=== PATIENT | female | born 1970 | race Caucasian/White ===

== ENCOUNTER 2024-11-15 14:36 | Emergency (ER) | payer OTHER, SELFPAY ==
--- NOTE | ~2024-11-15 | CT_ITS ---
EXAMINATION: CT brain wo sedrick, 11/15/2024 16:55 CDT HISTORY: dizziness COMPARISON: No comparisons available. Technique: Axial images obtained of the brain without contrast. One or more of the following dose reduction techniques were used: automated exposure control, adjustment of the mA and/or kV according to patient size, use of iterative reconstruction technique. Findings: No acute infarct or parenchymal hemorrhage. No abnormal mass or mass effect. No midline shift. No extra-axial fluid collections. No hydrocephalus. Mastoid air cells unremarkable. Sinuses and orbits unremarkable. No acute fracture. No significant facial or scalp soft tissue swelling evident. No radiopaque foreign body is seen. Impression: 1.No acute intracranial abnormality. Reviewed, dictated and finalized at location P. Impression: 1.No acute intracranial abnormality.
--- NOTE | ~2024-11-15 | XR_ITS ---
EXAMINATION: XR chest 2V 11/15/2024 17:10 INDICATION: Dizziness PROCEDURE: 2 view chest COMPARISON: No prior studies for comparison. FINDINGS: The lungs are clear. The cardiomediastinal silhouette is within normal limits. There are no pleural effusions. There is no pneumothorax suspected. IMPRESSION: 1: NO ACUTE CARDIOPULMONARY DISEASE. Reviewed, dictated and finalized at location O.
--- NOTE | ~2024-11-15 | CT_ITS ---
EXAMINATION: CTA brain carotid DATE: 11/15/2024 19:41 CDT INDICATION: Recent falls. Weakness. TECHNIQUE: Computed tomographic angiography (CTA) of the head was performed without and with 100 mL Omnipaque-350 intravenous contrast. CTA of the neck was performed with intravenous contrast. The dose-length product was 1226.99 mGy-cm. Maximum intensity projection and volume rendered 3D-reconstructions were created by the technologist on a separate workstation. COMPARISON: CT dated 11/15/2024. FINDINGS: HEAD CTA: There is mild stenosis of the cavernous segment of the left internal carotid artery. There is no evidence for occlusion or aneurysm. There are codominant vertebral arteries. Small air-fluid levels present in the sphenoid sinus consistent with sinusitis. NECK CTA: The origins of the carotid and vertebral arteries are widely patent. There is no evidence for significant stenosis, occlusion or dissection within the carotid arteries. There is 0% stenosis of the proximal right internal carotid artery relative to normal distal artery lumen diameter (NASCET criteria). There is 0% stenosis of the proximal left internal carotid artery relative to normal distal artery lumen diameter. IMPRESSION: 1: No significant vascular abnormality of the head or neck. 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 3: Mild sinus disease. Reviewed, dictated and finalized at location O.
[2024-11-15 14:53] VITALS: BP 125/73; PULSE 88; RESP 16; TEMP 36.2; O2SAT 98
--- NOTE | 2024-11-15 14:53 | ECG_ITS ---
Test Date: 2024-11-15 14:58:35 Measurements Intervals [place] Rate: 86 P: 35 NV: 157 QRS: 23 QRSD: 90 T: 15 QT: 349 QTc: 418 Interpretive Statements SINUS RHYTHM LOW QRS VOLTAGE IN PRECORDIAL LEADS [QRS DEFLECTION < 1.0 mV IN CHEST LEADS] POSSIBLE RIGHT VENTRICULAR CONDUCTION DELAY [RSR (QR) IN V1/V2] POSSIBLE ANTERIOR MYOCARDIAL INFARCTION , PROBABLY OLD [30 ms Q WAVE IN V3/V4, OR R < 0.2 mV IN V4] No previous ECG available for comparison Electronically Signed On 11-15-2024 20:00:23 CDT by Nena Martinez M.D.
--- NOTE | 2024-11-15 16:45 | ED_ITS ---
HPI - Weakness General Chief complaint: Weakness <Isabelle Alvarado PA-C - Last Filed: 11/18/24 10:06> Stated complaint: Weakness b/l legs <Isabelle Alvarado PA-C - Last Filed: 11/18/24 10:06> Time Seen by Provider: 11/15/24 16:45 <Isabelle Alvarado PA-C - Last Filed: 11/18/24 10:06> Focused HPI: This is a 54 year old female that presents to the ER for weakness. Reports multiple falls. Reports dizziness. Reports this has been an ongoing issue for months. GENERAL: Well-appearing, well-nourished, and in no acute distress. HEAD: Normocephalic, atraumatic. CHEST: Clear to auscultation. ?No respiratory distress. HEART: Regular rate and rhythm.? NEURO: ?Alert and oriented x3. Patient screened in triage and initial orders placed.? ?Additional care and disposition to be based upon?diagnostic testing and treatment. <Isabelle Alvarado PA-C - Last Filed: 11/18/24 10:06> Focused HPI: This is a 54 year old female that presents to the ER for weakness. Reports multiple falls. Reports dizziness. Reports this has been an ongoing issue for months. GENERAL: Well-appearing, well-nourished, and in no acute distress. HEAD: Normocephalic, atraumatic. CHEST: Clear to auscultation. ?No respiratory distress. HEART: Regular rate and rhythm.? NEURO: ?Alert and oriented x3. Patient screened in triage and initial orders placed.? ?Additional care and disposition to be based upon?diagnostic testing and treatment. <Nathaly Ansari PA-C - Last Filed: 11/15/24 21:08> Source: patient <JESSICA Soto Last Filed: 11/15/24 21:08> Mode of arrival: ambulatory <Nathaly Ansari PA-C - Last Filed: 11/15/24 21:08> Limitations: no limitations <JESSICA Soto Last Filed: 11/15/24 21:08> History of Present Illness HPI Narrative: Agree with above HPI. States this has been ongoing for the last 1 year, but has been worse over this summer. Reports she was at [place] today, get began feeling hot and somewhat lightheaded and weak in her lower extremities. She then fell to the ground. She did not injure herself when she fell. Did not hit her head or lose consciousness. Remembers the entire thing. States this is how the episodes occur every single time over the last 1 year. Denies any change in the episode today. States she feels back to her normal currently. Notes she did not drink much water today. Denies chest pain, palpitations, shortness of breath, focal weakness or numbness, vision changes. <Nathaly Ansari PA-C - Last Filed: 11/15/24 21:08> Related Data Allergies/Adverse reactions: Allergies Allergy/AdvReac Type Severity Reaction Status Date / Time codeine Allergy Unknown Weakness Verified 11/15/24 14:59 <Isabelle Alvarado PA-C - Last Filed: 11/18/24 10:06> Review of Systems 2 Review of Systems: All systems reviewed & are unremarkable except as noted in HPI. <Nathaly Ansari PA-C - Last Filed: 11/15/24 21:08> All systems reviewed & are unremarkable except as noted in HPI and below < Nathaly Ansari PA-C - Last Filed: 11/15/24 21:08> Exam 2 Narrative: GENERAL: Well appearing, morbidly obese with BMI 46.0, non-toxic, in no acute distress. HEAD: Normocephalic, atraumatic. EYES: PERRL/EOMI, conjunctivae clear bilaterally. No nystagmus. NECK: Supple. No meningeal signs. RESPIRATORY: Airway patent, respirations nonlabored. Clear to auscultation bilaterally, no rales, rhonchi, wheezing. CARDIOVASCULAR: Regular rate and rhythm without murmurs, rubs, or gallops. Peripheral pulses 2+ and equal bilaterally. MUSCULOSKELETAL: Moves all extremities. No gross deformities. SKIN: Warm, dry, normal color. No rashes. NEURO: A&O X3. Speech clear. Follows commands. CN II-XII intact. Sensation grossly intact, symmetric bilaterally. Steady gait. No ataxic movements. Strength 5/5 in upper and lower extremities bilaterally. No pronator drift. Equal vp home health strength bilaterally. PSYCHIATRIC: Appropriate mood and affect. Normal interaction. <JESSICA Soto Last Filed: 11/15/24 21:08> Course Vital Signs Vital signs: Vital Signs Temperature 97.2 F L 11/15/24 14:53 Pulse Rate 88 11/15/24 14:53 Respiratory Rate 16 11/15/24 14:53 Blood Pressure 125/73 11/15/24 14:53 Pulse Oximetry 98 11/15/24 14:53 Temperature 97.6 F 11/15/24 18:11 Pulse Rate 87 11/15/24 21:13 Respiratory Rate 17 11/15/24 21:13 Blood Pressure 128/80 11/15/24 21:13 Pulse Oximetry 97 11/15/24 21:13 Oxygen Delivery Room Air 11/15/24 18:11 <JESSICA Brito Last Filed: 11/18/24 10:06> Vital Signs Temperature 97.2 F L 11/15/24 14:53 Pulse Rate 88 11/15/24 14:53 Respiratory Rate 16 11/15/24 14:53 Blood Pressure 125/73 11/15/24 14:53 Pulse Oximetry 98 11/15/24 14:53 Temperature 97.6 F 11/15/24 18:11 Pulse Rate 87 11/15/24 21:13 Respiratory Rate 17 11/15/24 21:13 Blood Pressure 128/80 11/15/24 21:13 Pulse Oximetry 97 11/15/24 21:13 Oxygen Delivery Room Air 11/15/24 18:11 <JESSICA Soto Last Filed: 11/15/24 21:08> MDM - Weakness MDM Narrative Medical decision making narrative: Patient presented to ED with weakness, fall today. History of similar episodes over the past 1 year. Vital signs are stable upon arrival. Patient is neurologically intact. No focal deficits appreciated on my exam. She denies syncope, LOC, states the episode occurred today just like all of the other episodes over the past 1 year, however her family recommended to come to the ED today. She denies any injury from the fall. Denies head injury. CT brain negative. 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 Patient reports she has previously been evaluated by Neurology and they did not find any concerning findings. She was most recently referred to a psychiatrist for these episodes. States in the past, she did not have any episodes while on anxiety medication. She does admit to feeling anxious with the episodes. Laboratory studies are also otherwise unremarkable. No significant abnormalities. Normal electrolytes. CK within normal range. EKG with sinus rhythm, no significant concerning ST changes. Troponin undetectable. Chest x- ray is clear. UA without signs of infection. Patient remains at her baseline. Remains neurologically intact. Has not had any issues throughout ED stay. Discussed lab and imaging findings with patient, overall reassuring workup. No specific etiology to explain patient's sx's at this time. Feel patient is safe for discharge home with close outpatient follow-up. She has an appointment with her primary care doctor on Monday. Advised to discuss anxiety/axniety medications. She feels comfortable going home. Discussed very strict return precautions, including signs and sx's of cva. Patient is in agreement with plan. D/C in stable condition. <Nathaly Ansari PA-C - Last Filed: 11/15/24 21:08> Medical Records Attestation: I reviewed the patient's medical records. <Nathaly Ansari PA-C - Last Filed: 11/15/24 21:08> Lab Data Attestation: I reviewed the patient's lab results. <Nathaly Ansari PA-C - Last Filed: 11/15/24 21:08> Result diagrams: 11/15/24 18:34 11/15/24 18:34 <Isabelle Alvarado PA-C - Last Filed: 11/18/24 10:06> Labs: Lab Results 11/15/24 11/15/24 Range/Units 18:34 18:50 WBC 10.1 H (4.5-10.0) K/mm3 RBC 4.73 (4.2-5.4) M/mm3 Hgb 13.1 (12.0-15.0) g/dL Hct 41.2 (37.0-47.0) % MCV 87.1 (80-100) fl MCH 27.7 (26-34) pg MCHC 31.8 L (32-36) g/dl RDW 14.3 (11.5-14.5) % Plt Count 295 (150-375) k/mm3 MPV 10.1 (7.4-10.4) fl Immature Gran % (Auto) 0.3 (0-0.5) % Neut % (Auto) 75.6 H (45.5-73.1) % Lymph % (Auto) 15.6 L (18.3-44.2) % [place] % (Auto) 6.6 (2.6-8.5) % Eos % (Auto) 1.5 (0-4.4) % Baso % (Auto) 0.4 (0.2-1.2) % Lymph # (Auto) 1.57 (0.9-3.2) K/mm3 [place] # (Auto) 0.7 H (0.1-0.6) K/mm3 Eos # (Auto) 0.2 (0-0.3) K/mm3 Baso # (Auto) 0.0 (0.0-0.1) K/mm3 Abs Immat Gran (auto) 0.03 (0.00-0.031) K/mm3 Absolute Neuts (auto) 7.6 H (1.3-6.7) K/mm3 Absolute Nucleated RBC 0.000 (0.0-0.012) K/mm3 Nucleated RBC % 0.0 (0.0-0.2) % Sodium 139 (137-145) mmol/L Potassium 4.3 (3.4-5.0) mmol/L Chloride 105 (98-107) mmol/L Carbon Dioxide 25 (22-30) mmol/L Anion Gap 9 (4-12) mmol/L BUN 20 H (7-17) mg/dL Creatinine 0.93 (0.7-1.0) mg/dL Estim Creat Clear Calc 73 ml/min Estimated GFR > 60 (59 - ) Glucose 107 (65-110) mg/dL Calcium 8.9 (8.4-10.2) mg/dL Magnesium 2.2 (1.6-2.3) mg/dL Total Bilirubin 0.4 (0.2-1.3) mg/dL AST 21 (14-36) U/L ALT 19 (6-35) U/L Alkaline Phosphatase 135 H (38-126) U/L Total Creatine Kinase 42 (30-135) U/L Troponin I < 0.012 (0.000-0.034) ng/mL Total Protein 7.4 (6.3-8.2) g/dL Albumin 4.1 (3.5-5.1) g/dL Urine Color Yellow (Yellow) Urine Appearance Cloudy H (Clear) Urine pH 7.0 (5.0-9.0) Ur Specific [place] 1.024 (1.001-1.035) Urine Protein Negative (Negative) mg/dL Urine Glucose (UA) Negative (Negative) mg/dL Urine Ketones Negative (Negative) mg/dL Ur Blood (Man) Negative (Negative) Urine Nitrate Negative (Negative) Urine Bilirubin Negative (Negative) Urine Urobilinogen 1.0 (<2.0) mg/dL Leukocyte Esterase Rfl Trace H (Negative) NAOMIE/UL Urine RBC 3-5 H (0-2) /hpf Urine WBC 0-5 (0-3) /hpf Ur Squamous Epith Cells Moderate (Few) /hpf Urine Bacteria 2+ H /hpf Urine Casts 0-2 <Isabelle Alvarado PA-C - Last Filed: 11/18/24 10:06> Lab Results 11/15/24 11/15/24 Range/Units 18:34 18:50 WBC 10.1 H (4.5-10.0) K/mm3 RBC 4.73 (4.2-5.4) M/mm3 Hgb 13.1 (12.0-15.0) g/dL Hct 41.2 (37.0-47.0) % MCV 87.1 (80-100) fl MCH 27.7 (26-34) pg MCHC 31.8 L (32-36) g/dl RDW 14.3 (11.5-14.5) % Plt Count 295 (150-375) k/mm3 MPV 10.1 (7.4-10.4) fl Immature Gran % (Auto) 0.3 (0-0.5) % Neut % (Auto) 75.6 H (45.5-73.1) % Lymph % (Auto) 15.6 L (18.3-44.2) % [place] % (Auto) 6.6 (2.6-8.5) % Eos % (Auto) 1.5 (0-4.4) % Baso % (Auto) 0.4 (0.2-1.2) % Lymph # (Auto) 1.57 (0.9-3.2) K/mm3 [place] # (Auto) 0.7 H (0.1-0.6) K/mm3 Eos # (Auto) 0.2 (0-0.3) K/mm3 Baso # (Auto) 0.0 (0.0-0.1) K/mm3 Abs Immat Gran (auto) 0.03 (0.00-0.031) K/mm3 Absolute Neuts (auto) 7.6 H (1.3-6.7) K/mm3 Absolute Nucleated RBC 0.000 (0.0-0.012) K/mm3 Nucleated RBC % 0.0 (0.0-0.2) % Sodium 139 (137-145) mmol/L Potassium 4.3 (3.4-5.0) mmol/L Chloride 105 (98-107) mmol/L Carbon Dioxide 25 (22-30) mmol/L Anion Gap 9 (4-12) mmol/L BUN 20 H (7-17) mg/dL Creatinine 0.93 (0.7-1.0) mg/dL Estim Creat Clear Calc 73 ml/min Estimated GFR > 60 (59 - ) Glucose 107 (65-110) mg/dL Calcium 8.9 (8.4-10.2) mg/dL Magnesium 2.2 (1.6-2.3) mg/dL Total Bilirubin 0.4 (0.2-1.3) mg/dL AST 21 (14-36) U/L ALT 19 (6-35) U/L Alkaline Phosphatase 135 H (38-126) U/L Total Creatine Kinase 42 (30-135) U/L Troponin I < 0.012 (0.000-0.034) ng/mL Total Protein 7.4 (6.3-8.2) g/dL Albumin 4.1 (3.5-5.1) g/dL Urine Color Yellow (Yellow) Urine Appearance Cloudy H (Clear) Urine pH 7.0 (5.0-9.0) Ur Specific [place] 1.024 (1.001-1.035) Urine Protein Negative (Negative) mg/dL Urine Glucose (UA) Negative (Negative) mg/dL Urine Ketones Negative (Negative) mg/dL Ur Blood (Man) Negative (Negative) Urine Nitrate Negative (Negative) Urine Bilirubin Negative (Negative) Urine Urobilinogen 1.0 (<2.0) mg/dL Leukocyte Esterase Rfl Trace H (Negative) NAOMIE/UL Urine RBC 3-5 H (0-2) /hpf Urine WBC 0-5 (0-3) /hpf Ur Squamous Epith Cells Moderate (Few) /hpf Urine Bacteria 2+ H /hpf Urine Casts 0-2 <Nathaly Ansari PA-C - Last Filed: 11/15/24 21:08> Imaging Data Attestation: I personally reviewed and interpreted this imaging study as follows: < Nathaly Ansari PA-C - Last Filed: 11/15/24 21:08> Radiologist's impression: ITS Impressions Head CT 11/15/24 17:06 Impression: 1.No acute intracranial abnormality. Chest X-Ray 11/15/24 17:12 IMPRESSION: 1: NO ACUTE CARDIOPULMONARY DISEASE. Head/Neck CTA 11/15/24 19:40 IMPRESSION: 1: No significant vascular abnormality of the head or neck. 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 3: Mild sinus disease. <Nathaly Ansari PA-C - Last Filed: 11/15/24 21:08> ECG Data EKG #1: Attestation: I personally reviewed and interpreted this ECG as follows: <Nathaly Ansari PA-C - Last Filed: 11/15/24 21:08> ECG completion date: 11/15/24 <JESSICA Soto Last Filed: 11/15/24 21:08> ECG completion time: 14:58 <JESSICA Soto Last Filed: 11/15/24 21:08> EKG Interpretation: normal rate (86), sinus rhythm and non-specific ST changes <JESSICA Soto Last Filed: 11/15/24 21:08> Critical Care Time Critical Care Time Critical Care Time: No <JESSICA Brito Last Filed: 11/18/24 10:06> Discharge Plan Discharge Clinical Impression: Generalized weakness, Multiple falls <JESSICA Brito Last Filed: 11/18/24 10:06> Patient Disposition: Home <JESSICA Brito Last Filed: 11/18/24 10:06> Condition: Stable <JESSICA Brito Last Filed: 11/18/24 10:06> Instructions: Antibiotic Form, Weakness (ED), Fall Prevention (ED) <JESSICA Brito Last Filed: 11/18/24 10:06> Additional Instructions: Your workup here was reassuring. Stay well hydrated at home. Follow-up with your primary care doctor for further evaluation. Return to the ED if you experience worsening or severe symptoms, severe weakness, weakness or numbness of arm or leg, chest pain, difficulty breathing, passing out, severe dizziness, difficulty speaking or slurred speech, or any other symptoms of concern. <JESSICA Brito Last Filed: 11/18/24 10:06> Patient Language: Estonian <JESSICA Brito Last Filed: 11/18/24 10:06> Follow-up/Referrals: PHYSICIAN,SAW FILER [Primary Care Provider, Internal Medicine] <JESSICA Brito Last Filed: 11/18/24 10:06> Time of Disposition: 21:02 <JESSICA Brito Last Filed: 11/18/24 10:06> 21:02 <JESSICA Soto Last Filed: 11/15/24 21:08>
[2024-11-15 18:11] VITALS: BP 122/70; PULSE 70; PULSE 88; RESP 15; TEMP 36.4; O2SAT 99
--- OUTSIDE RECORDS SUMMARY | 2024-11-15 18:29 | XMS_ITS | Encounter Summary ---
Author Organization [facility] Address [facility] [place] [address] Care Team Providers Care Specimen Preparation Assistant Name Role Phone Devaughn Manuel MD Primary Care Provider [phone] Selam, Melissa Primary Care Provider [phone] Selam, Melissa DO Primary Care Provider [phone] None, Provider Primary Care Provider Carroll Yang MD Primary Care Provider [phone] Encounter Details Date Type Department Care Team (Late st Contact Info) Description 05/24/2021 Hosp Visit [facility] Occupational Therapy [address] [place], [place] [address] Miguel A Nick, OTR [place], [place] [id number] Social History Tobacco Use Types Packs/Day Years Used Date Smoking Tobacco: Former Cigarettes Smokeless Tobacco: Never Comments:>4 years Physician will discuss if necessary Alcohol Use Standard Drinks/Week Comments Never 0 (1 standard drink = 0.6 oz pur e alcohol) AUDIT-C Answer Date Recorded Frequency of Alcohol Consumption Never 03/05/2019 Average Number of Drinks Not on file 020 Frequency of Binge Drinking Not on file 02/20 PHQ-2 Answer Date Recorded PHQ-2 Score - If the patient scores above 3, please move on to questions 3-9 0 12/11/2020 Comments No Sex and Gender Information Value Date Recorded Sex Assigned at Female 03/21/2024 5:01 PM LITIGATION CLAIM REPRESENTATIVE Legal Sex Female 10:42 PM CDT Gender Identity Female 05/10/2021 12:51 PM CDT Sexual Orientation Straight 11/10/2021 5: 43 AM CDT COVID-19 Exposure Response Date Recorded In the last 10 days, have yo u been in contact with someone who was confirmed or suspected to have Coronavirus/COVID-19? No / Unsure 05/13/2021 1:31 PM CDT documented as of this encounter Functional Status * RETIRED Are you deaf or do you have serious difficulty hearing Answer Date of Assessment Author Status No 01/01/2020 2:43 PM LITIGATION CLAIM REPRESENTATIVE Activ e * RETIRED Are you blind or do you have serious difficulty seeing, even when wearing glasses? Answer Date of Assessment Author Status No 01/01/2020 2:43 PM LITIGATION CLAIM REPRESENTATIVE Activ e * Do you have serious difficulty walking or climbing stairs? Answer Date of Assessment Author Status No 01/01/2020 2:43 PM Emma Silvestre RN Active * Do you have difficulty dressing or bathing? Answer Date of Assessment Author Status No 01/01/2020 2:43 PM Emma Silvestre RN Active * Because of a physical, mental, or emotional condition, do you have difficulty doing errands alone such as visiting a doctor's office or shopping? Answer Date of Assessment Author Status No 01/01/2020 2:43 PM Emma Silvestre RN Active documented as of this encounter Mental Status * Because of a physical, mental, or emotional condition, do you have serious difficulty concentrating, remembering, or making decisions? Answer Entry Date Author Status No 01/01/2020 2:43 PM Emma Silvestre RN Active documented in this encounter Plan of Treatment Not on file documented as of this encounter Visit Diagnoses Diagnosis Hand pain, right- Primary Pain in limb documented in this encounter Additional Health Concerns Infection Onset Date Last Indicated Resolved Time COVID-19 Rule Out 11/15/2021 11/15/2021 11/16/2021 11:55 PM CDT Assessment Noted Time PHQ-9 Depression Total Score: 4 12/12/19 21 8:53 AM CDT documented as of this encounter Care Teams Specimen Preparation Assistant Relationship Specialty Start Date End Date Devaughn Manuel MD [address] [place] [id number] PCP - General INTERNAL MEDICINE 01/16/21 11/09/21 Melissa Doss DO [address] [place] [address] PCP - General FAMILY PRACTICE 11/10/21 07/15/22 Melissa Doss DO [address] [place] [address] PCP - General FAMILY PRACTICE 01/16/23 01/19/23 None, MD [place] PCP - General UNKNOWN PHYSICIAN SPECIALTY 02/19/23 12/13/23 Carroll La MD [address] [place] [address] PCP - General FAMILY PRACTICE 12/14/23 documented as of this encounter
--- OUTSIDE RECORDS SUMMARY | 2024-11-15 18:29 | XMS_ITS | Encounter Summary ---
Author Organization [facility] Address [address] [place] [address] Care Team Providers Care Planner Intern Name Role Phone Melissa Doss DO Primary Care Provider [phone] Melissa Doss DO Primary Care Provider [phone] None, Provider Primary Care Provider Carroll Yang MD Primary Care Provider [phone] Encounter Details Date Type Department Care Team (Late st Contact Info) Description 02/14/2022 BlackBridget Message Enc [facility] Family Medicine - [place] [address] [facility], [address] [place] [address] Melissa Doss, DO [address] [place], [place] [phone] [place] Social History Tobacco Use Types Packs/Day Years Used Date Smoking Tobacco: Former Cigarettes 1 5 1 - 12/05/2019 Smokeless Tobacco: Never Comments:>4 years Physician will [...] please move on to questions 3-9 0 01/21/2022 Comments No Sex and Gender Information Value Date Recorded Sex Assigned at Female 03/21/2024 5:01 PM PALLIATIVE CARE COORDINATOR Legal Sex Female 10:42 PM CDT Gender Identity Female 05/10/2021 12:51 PM CDT Sexual Orientation Straight 11/10/2021 5: 43 AM CDT COVID-19 Exposure Response Date Recorded In the last 10 days, have yo u been in contact with someone who was confirmed or suspected to have Coronavirus/COVID-19? No / Unsure 02/15/2022 10:06 AM PALLIATIVE CARE COORDINATOR documented as of this encounter Functional Status * RETIRED Are you deaf or do you have serious difficulty hearing Answer Date of Assessment Author Status No 01/01/2020 2:43 PM PALLIATIVE CARE COORDINATOR Activ e * RETIRED Are you blind or do you have serious difficulty seeing, even when wearing glasses? Answer Date of Assessment Author Status No 01/01/2020 2:43 PM PALLIATIVE CARE COORDINATOR Activ e * Do you have serious [...] Assessment Author Status No 01/01/2020 2:43 PM mEma Silvestre RN Active documented as of this encounter Mental Status * Because of a physical, mental, or emotional condition, do you have serious difficulty concentrating, remembering, or making decisions? Answer Entry Date Author Status No 01/01/2020 2:43 PM Emma Silvestre RN Active documented in this encounter Plan of Treatment Not on file documented as of this encounter Visit Diagnoses Not on filedocumented in this encounter Additional Health Concerns Assessment Noted Time PHQ-9 Depression Total Score: 20 022 8:43 AM CDT documented as of this encounter Care Teams Planner Intern Relationship Specialty Start Date End Date Melissa Doss DO [address] [place] [id number] PCP - General FAMILY PRACTICE 11/10/21 07/15/22 Melissa Doss DO [address] [place] [address] PCP - General FAMILY PRACTICE 01/16/23 01/19/23 None, Provider, PCP - General UNKNOWN PHYSICIAN SPECIALTY 02/19/23 12/13/23 Carroll La MD [address] [place] [phone] PCP - General FAMILY PRACTICE 12/14/23 documented as of this encounter
--- OUTSIDE RECORDS SUMMARY | 2024-11-15 18:29 | XMS_ITS | Encounter Summary ---
Author Organization [facility] Address [facility] [place] [address] Care Team Providers Care Logging Tractor Operator Name Role Phone Melissa Doss Primary Care Provider [phone] Selam Melissa Primary Care Provider [phone] None, Provider Primary Care Provider Carroll Yang MD Primary Care Provider [phone] Encounter Details Date Type Department Care Team (Late st Contact Info) Description 01/05/2022 HotPadst Message Enc [facility] Diabetes and Endocrinology - [place] [address] [place] [address] Stacey Borjas, RD 6.1 a1c Social History Tobacco Use Types Packs/Day Years [...] 3, please move on to questions 3-9 4 11/10/2021 Comments No Sex and Gender Information Value Date Recorded Sex Assigned at Female 03/21/2024 5:01 PM PROCESS STRIPPER Legal Sex Female 10:42 PM CDT Gender Identity Female 05/10/2021 12:51 PM CDT Sexual Orientation Straight 11/10/2021 5: 43 AM CDT COVID-19 Exposure Response Date Recorded In the last 10 days, have yo u been in contact with someone who was confirmed or suspected to have Coronavirus/COVID-19? No / Unsure 12/28/2021 9:08 AM PROCESS STRIPPER documented as of this encounter Functional Status * RETIRED Are you deaf or do you have serious difficulty hearing Answer Date of Assessment Author Status No 01/01/2020 2:43 PM PROCESS STRIPPER Activ e * RETIRED Are you blind or do you have serious difficulty seeing, even when wearing glasses? Answer Date of Assessment Author Status No 01/01/2020 2:43 PM PROCESS STRIPPER Activ e * Do you have serious [...] documented as of this encounter Care Teams Logging Tractor Operator Relationship Specialty Start Date End Date Melissa Doss DO [address] [place] [id number] PCP - General FAMILY PRACTICE 11/10/21 07/15/22 Melissa Doss DO [address] [place] [address] PCP - General FAMILY PRACTICE 01/16/23 01/19/23 None, Provider, PCP - General UNKNOWN PHYSICIAN SPECIALTY 02/19/23 12/13/23 Carroll La MD [address] [place] [address] [address] [place] [address] PCP - General FAMILY PRACTICE 12/14/23 documented as of this encounter
--- OUTSIDE RECORDS SUMMARY | 2024-11-15 18:29 | XMS_ITS | Encounter Summary ---
Author Organization [facility] Address [address] [place] [address] Care Team Providers Care Camera Mechanic Name Role Phone Melissa Doss DO Primary Care Provider [phone] Melissa Doss DO Primary Care Provider [phone] None, Provider Primary Care Provider Carroll Yang MD Primary Care Provider [phone] Encounter Details Date Type Department Care Team (Late st Contact Info) Description 06/01/2022 Squawkat Message Enc [facility] Family Medicine - [place] [address], [address] [place] [phone] SelamMelissa white, DO [address] [place], [place] [id number] Concern Social History Tobacco Use Types Packs/Day Years Used Date Smoking Tobacco: Former Cigarettes 1 5 1 - 12/04/2020 Smokeless Tobacco: Never Comments:>4 years Physician will discuss if necessary Alcohol Use Standard Drinks/Week Comments Never 0 (1 standard drink = 0.6 oz pur e alcohol) AUDIT-C Answer Date Recorded Frequency of Alcohol Consumption Never 03/05/2019 Average Number of Drinks Not on file 020 Frequency of Binge Drinking Not on file 02/20 PHQ-2 Answer Date Recorded Patient Health Questionnaire-2 Score 0 05/02/2022 Comments No Sex and Gender Information Value Date Recorded Sex Assigned at Female 03/21/2024 5:01 PM PUMP RUNNER Legal Sex Female 10:42 PM CDT Gender Identity Female 05/10/2021 12:51 PM CDT Sexual Orientation Straight 11/10/2021 5: 43 AM CDT COVID-19 Exposure Response Date Recorded In the last 10 days, have michael lyons been in contact with someone who was confirmed or suspected to have Coronavirus/COVID-19? No / Unsure 05/13/2022 6:02 AM CDT documented as of this encounter Functional Status * Are you deaf or do you have serious difficulty hearing Answer Date of Assessment Author Status No 05/13/2022 2:20 PM CDT Kaley Odonnell RN Active * Are you blind or do you have serious difficulty seeing, even when wearing glasses? Answer Date of Assessment Author Status No 05/13/2022 2:20 PM CDT Kaley Odonnell RN Active * Do you have serious difficulty walking or climbing stairs? Answer Date of Assessment Author Status No 05/13/2022 2:20 PM CDT Kaley Odonnell RN Active * Do you have difficulty dressing or bathing? Answer Date of Assessment Author Status No 05/13/2022 2:20 PM CDT Kaley Odonnell RN Active * Because of a physical, mental, or emotional condition, do you have difficulty doing errands alone such as visiting a doctor's office or shopping? Answer Date of Assessment Author Status No 05/13/2022 2:20 PM CDT Kaley Odonnell RN Active documented as of this encounter Mental Status * Because of a physical, mental, or emotional condition, do you have serious difficulty concentrating, remembering, or making decisions? Answer Entry Date Author Status No 05/13/2022 2:20 PM CDT Kaley Odonnell RN Active documented in this encounter Plan of Treatment Not on file documented as of this encounter Visit Diagnoses Not on filedocumented in this encounter Additional Health Concerns Assessment Noted Time PHQ-9 Depression Total Score: 022 8:43 AM CDT documented as of this encounter Care Teams Camera Mechanic Relationship Specialty Start Date End Date Melissa Doss DO [address] [place] [address] PCP - General FAMILY PRACTICE 11/10/21 07/15/22 Melissa Doss DO [address] [place] [address] PCP - General FAMILY PRACTICE 01/16/23 01/19/23 None, Provider, PCP - General UNKNOWN PHYSICIAN SPECIALTY 02/19/23 12/13/23 Carroll La MD [address] [phone] PCP - General FAMILY PRACTICE 12/14/23 documented as of this encounter
--- OUTSIDE RECORDS SUMMARY | 2024-11-15 18:29 | XMS_ITS | Encounter Summary ---
Author Organization [facility] Address [address] [place] [address] Care Team Providers Care Informatics Physician Name Role Phone Melissa Doss DO Primary Care Provider [phone] Melissa Doss DO Primary Care Provider [phone] None, Provider Primary Care Provider Carroll Yang MD Primary Care Provider Encounter Details Date Type Department Care Team (Late st Contact Info) Description 04/09/2022 naaya Message Enc [facility] Family Medicine - [place] [address], [address] [place] [address] Melissa Doss, DO [address] [place], [place] [phone] Psyc report Social History Tobacco Use Types Packs/Day Years [...] Sex Assigned at Female 03/21/2024 5:01 PM SSAS DEVELOPER Legal Sex Female 10:42 PM CDT Gender Identity Female 05/10/2021 12:51 PM CDT Sexual Orientation Straight 11/10/2021 5: 43 AM CDT COVID-19 Exposure Response Date Recorded In the last 10 days, have yo u been in contact with someone who was confirmed or suspected to have Coronavirus/COVID-19? No / Unsure 03/21/2022 3:49 PM SSAS DEVELOPER documented as of this encounter Functional Status * RETIRED Are you deaf or do you have serious difficulty hearing Answer Date of Assessment Author Status No 01/01/2020 2:43 PM SSAS DEVELOPER Activ e * RETIRED Are you blind or do you have serious difficulty seeing, even when wearing glasses? Answer Date of Assessment Author Status No 01/01/2020 2:43 PM SSAS DEVELOPER Activ e * Do you have serious [...] documented as of this encounter Care Teams Informatics Physician Relationship Specialty Start Date End Date Melissa Doss DO [address] [place] [address] PCP - General FAMILY PRACTICE 11/10/21 07/15/22 Melsisa Doss DO [address] [place] [address] PCP - General FAMILY PRACTICE 01/16/23 01/19/23 None, Provider, PCP - General UNKNOWN PHYSICIAN SPECIALTY 02/19/23 12/13/23 Carroll La MD [address] [place] [phone] PCP - General FAMILY PRACTICE 12/14/23 documented as of this encounter
--- OUTSIDE RECORDS SUMMARY | 2024-11-15 18:29 | XMS_ITS | Encounter Summary ---
Author Organization [facility] Address [address] [place] [address] Care Team Providers Care Wax Pot Tender Name Role Phone Melissa Doss DO Primary Care Provider [phone] Melissa Doss DO Primary Care Provider [phone] None, Provider Primary Care Provider Carroll Yang MD Primary Care Provider [phone] Encounter Details Date Type Department Care Team (Late st Contact Info) Description 04/21/2022 Story To Colleget Message Enc [facility] Family Medicine - [place] [address] [facility], [address] [place] [phone] Melissa Doss, DO [address] [place], [place] [phone] Psych report (Kimmy) Social History Tobacco Use Types Packs/Day Years [...] Sex Assigned at Female 03/21/2024 5:01 PM FIREARMS MODEL MAKER Legal Sex Female 10:42 PM CDT Gender Identity Female 05/10/2021 12:51 PM CDT Sexual Orientation Straight 11/10/2021 5: 43 AM CDT documented as of this encounter Functional Status * RETIRED Are you deaf or do you have serious difficulty hearing Answer Date of Assessment Author Status No 01/01/2020 2:43 PM FIREARMS MODEL MAKER Activ e * RETIRED Are you blind or do you have serious difficulty seeing, even when wearing glasses? Answer Date of Assessment Author Status No 01/01/2020 2:43 PM FIREARMS MODEL MAKER Activ e * Do you have serious [...] documented as of this encounter Care Teams Wax Pot Tender Relationship Specialty Start Date End Date Melissa Doss DO [address] [place] [address] PCP - General FAMILY PRACTICE 11/10/21 07/15/22 Melissa Doss DO [address] [place] [address] PCP - General FAMILY PRACTICE 01/16/23 01/19/23 None, Provider, PCP - General UNKNOWN PHYSICIAN SPECIALTY 02/19/23 12/13/23 Carroll La MD [address] [place] [address] [address] [place] [phone] PCP - General FAMILY PRACTICE 12/14/23 documented as of this encounter
--- OUTSIDE RECORDS SUMMARY | 2024-11-15 18:29 | XMS_ITS | Encounter Summary ---
Author Organization [facility] Address [facility] [place] [address] Care Team Providers Care Cable Splicing Technician Name Role Phone Mesha Cuellar ASL INTERPRETER-C Primary Care Provider Selam, Melissa DO Primary Care Provider [phone] Devaughn Manuel MD Primary Care Provider [phone] Selam, Melissa DO Primary Care Provider [phone] Selam, Melissa DO Primary Care Provider [phone] None, Provider Primary Care Provider Carroll Yang MD Primary Care Provider [phone] Encounter Details Date Type Department Care Team (Late st Contact Info) Description 02/21/[address] [facility] [address] [place] [phone] Mesha Cuellar, ASL INTERPRETER-C [address] [place] [address] RE: Test Results Social History Tobacco Use Types Packs/Day Years Used Date Smoking Tobacco: Every Day Cigarettes Smokeless Tobacco: Never Comments:>4 years Alcohol Use Standard Drinks/Week Comments Never 0 (1 standard drink = 0.6 oz pur e alcohol) AUDIT-C Answer Date Recorded Frequency of Alcohol Consumption Never 03/05/2019 Average Number of Drinks Not on file 020 Frequency of Binge Drinking Not on file 02/20 Comments No Sex and Gender Information Value Date Recorded Sex Assigned at Female 03/21/2024 5:01 PM ZINC FURNACE CHARGER Legal Sex Female 10:42 PM CDT Gender Identity Female 05/10/2021 12:51 PM CDT Sexual Orientation Straight 11/10/2021 5: 43 AM CDT COVID-19 Exposure Response Date Recorded In the last month, have you been in contact with someone who was confirmed or suspected to have Coronavirus / COVID-19? No / Unsure 02/18/2020 4:02 AM ZINC FURNACE CHARGER documented as of this encounter Functional Status * RETIRED Are you deaf or do you have serious difficulty hearing Answer Date of Assessment Author Status No 01/01/2020 2:43 PM ZINC FURNACE CHARGER Activ e * RETIRED Are you blind or do you have serious difficulty seeing, even when wearing glasses? Answer Date of Assessment Author Status No 01/01/2020 2:43 PM ZINC FURNACE CHARGER Activ e * Do you have serious [...] filedocumented in this encounter Additional Health Concerns Infection Onset Date Last Indicated Resolved Time COVID-19 Rule Out 07/13/2020 07/13/2020 07/13/2020 2:36 PM CDT COVID-19 Rule Out 07/13/2020 07/13/2020 07/14/2020 2:46 PM CDT COVID-19 Rule Out 09/09/2020 09/09/2020 09/09/2020 3:01 PM CDT COVID-19 Rule Out 02/18/2021 02/18/2021 02/19/2021 1:01 PM ZINC FURNACE CHARGER COVID-19 Confirmed 02/18/2021 02/18/2021 12:32 AM ZINC FURNACE CHARGER COVID-19 Rule Out 11/15/2021 11/15/2021 11/16/2021 11:55 PM CDT documented as of this encounter Care Teams Cable Splicing Technician Relationship Specialty Start Date End Date Mesha Cuellar, ASL INTERPRETER-C PCP - General Nurse Practitioner Family 02/09/2004/21 Melissa Doss DO [address] [place] [address] PCP - General FAMILY PRACTICE 04/22/20 01/15/21 Devaughn Manuel MD [address] [place] [address] PCP - General INTERNAL MEDICINE 01/16/21 11/09/21 Melissa Doss DO [address] [place] [address] PCP - General FAMILY PRACTICE 11/10/21 07/15/22 Melissa Doss DO [address] [place] [address] PCP - General FAMILY PRACTICE 01/16/23 01/19/23 None, MD [place] PCP - General UNKNOWN PHYSICIAN SPECIALTY 02/19/23 1 Carroll La MD [address] [place] [phone] PCP - General FAMILY PRACTICE 12/14/23 documented as of this encounter
--- OUTSIDE RECORDS SUMMARY | 2024-11-15 18:29 | XMS_ITS | Encounter Summary ---
Author Organization [facility] Address [address] [place] [address] Care Team Providers Care Fiber Optics Technician Name Role Phone None, Provider Primary Care Provider Carroll Yang MD Primary Care Provider Encounter Details Date Type Department Care Team (Late st Contact Info) Description 11/01/2023 UB Access Message [facility] Patient Accounts [address] [place] [address] [facility] Provider Action Needed Social History Tobacco Use Types Packs/Day Years [...] Sex Assigned at Female 03/21/2024 5:01 PM FLAKEBOARD LINE TENDER Legal Sex Female 10:42 PM CDT Gender [...] documented as of this encounter Care Teams Fiber Optics Technician Relationship Specialty Start Date End Date None, Provider, PCP - General UNKNOWN PHYSICIAN SPECIALTY 02/19/23 1 Carroll La MD [address] [place] [phone] PCP - General FAMILY PRACTICE 12/14/23 documented as of this encounter
--- OUTSIDE RECORDS SUMMARY | 2024-11-15 18:29 | XMS_ITS | Clinical Summary ---
Author Organization [facility] Address [address] [place] [address] Care Team Providers Care Counter Clerk Name Role Phone Clemencia Collado MD Unavailable [phone] Carroll La MD Primary Care Provider [phone] Source Comments [facility],non-owned Affiliates and Associated Physician Practices is amultiple site organization consisting of ambulatory clinics and hospital sitesin [place], [place], [place] and [place]. This disclosure is being madepursuant to the Care Everywhere program and may not contain all information available regarding this patient. Last updated 17.[facility] Allergies Active Allergy Reactions Criticality Noted Date Comments Codeine Rash,Dizziness Medium 12/16/2015 Hypersensitivity. Ibuprofen Unknown 04/20/2021 Medications * This document contains information received from the source organization and may not represent a complete record from that organization. * Be aware that medications may not be up to date on this document. Alwaysverify current medications with the patient. fluticasone propionate (FLONASE) 50 MCG/ACT nasal spray [place] 1 (one) spray into the nose once daily Active hydrocortisone (HYTONE) 1 % cream Apply to affected area 4 times daily 30 g 2 Active atorvastatin (Lipitor) 80 MG tablet 3 Active Multiple Vitamin (One-Daily Multi-Vitamin) TABS Take 1 tablet by mouth once daily 2 Active omeprazole (PriLOSEC) 40 MG capsule TAKE 1 CAPSULE (40 MG TOTAL) BY MOUTH DAILY. 3 Active Oxymetazoline HCl (Nasal [place]) 0.05 % [place] 1 spray into the nose once daily as needed Active SM Lubricant Eye Drops 0.4-0.3 % ophth solution PLACE 1 DROP INTO BOTH EYES DAILY NEEDED. 3 Active sertraline (Zoloft) 50 MG tablet 3 Active topiramate (Topamax) 100 MG tabletIndication s:Migraine without aura and without status migrainosus, not intractable Take 1 (one) tablet by mouth once daily 90 tablet 3 3 Active Cyanocobalamin (B-12 Compliance Injection) 1000 MCG/ML 1 mg by Injection route every 7 days (once a week) For 4 weeks 4 kit 5 Active Harrison & Syringes MISC Inject 1 inch into muscle every 7 days (once a week) 4 Each 5 Active Active Problems Problem Noted Date Diagnosed Date Neck pain 05/27/2021 Overview (08/02/2021): Last Assessment & Plan: Given instructions on neck stretching. Start prednisone taper. Would also try heat 20-30 minutes every 2 - 3 hours. Mucous retention cyst of maxillary sinus 022 Overview (08/02/2021): Last Assessment & Plan: Has not started antibiotics yet because of insurance coverage. She start on cetirizine. History of 2019 novel coronavirus disease (COVID -19) 04/11/2021 Eczema of scalp 03/09/2021 Overview (08/02/2021): Last Assessment & Plan: Will try triamcinolone cream twice a day Non-seasonal allergic rhinitis 03/09/2021 Overview (08/02/2021): Last Assessment & Plan: Stable on Flonase Morbid obesity with BMI of 40.0-44.9, adult 02/20 Overview (08/02/2021): Last Assessment & Plan: BMI Follow-up includes: exercise counseling. Ingrown toenail of both feet 03/09/2021 Overview (08/02/2021): Last Assessment & Plan: Will refer to podiatry Hyperglycemia 03/09/2021 Overview (08/02/2021): Last Assessment & Plan: Will plan to check a hemoglobin A1c History of cerebral aneurysm 03/09/2021 Overview (08/02/2021): Last Assessment & Plan: Stable on aspirin and atorvastatin Last Assessment & Plan: S/p stent. Continue clopidigrel. Follows with Dr. Kitchen at [facility]. Mixed hyperlipidemia 06/11/2020 Fibroid 06/11/2020 Migraine without aura and wi thout status migrainosus, not intractable 06/11/2020 Overview (08/02/2021): Tracie is a 50 year female with a history of cerebral aneurysm, history TIA, and hypercholesterolemia who presented to the ER on 04/11/2021 with tongue numbness and numbness of half her face. Her reports slurred speech. Initially underwent a CT scan which showed no acute intracranial findings. She underwent an MRI/MRA of the brain which showed no acute intracranial abnormality, no definite large vessel occlusion, high-grade stenosis, or aneurysm in the head. She was evaluated by Neurology which felt this was probably due to migraine. May continue her dose of Topamax had added propranolol for migraine prophylaxis. Last Assessment & Plan: Stable on topiramate Groin pain, right 05/26/2020 Generalized anxiety disorder 04/22/2020 Overview (08/02/2021): Last Assessment & Plan: Stable on buspirone and sertraline Hand pain, right 03/07/2019 Low back pain 04/01/2013 Encounters Date Type Department Care Team Description 10/10/2024 Refill [facility] [address] [place] [address] Yosi Jimenez MD MEDICATION REFILL 10/08/2024 Refill [facility] [address] [place] [address] Yosi Jimenez MD Refill Request from Last 3 Months Immunizations Immunization Administration Dates Next Due INFLUENZA VACCINE, QUADR. (F LUZONE; FLULAVAL; FLUARIX; AFLURIA QUADRIVALENT; 6MO+), 0.5 ML (IIV4) 03/08/2021,12/03/2020,01/02/2020,2015 PNEUMOCOCCAL PPSV23 04/30/2015 Family History Medical History Relation Name Comments Renal Disease Mother Relation Name Status Comments Mother Social History Tobacco Use Types Packs/Day Years Used Date Smoking Tobacco: Former Cigarettes Q uit: 01/06/2020 Smokeless Tobacco: Never Tobacco Cessation:Counseling Given: Not Answered Alcohol Use Standard Drinks/Week Comments Not Currently 0 (1 standard drink = 0.6 oz pur e alcohol) AUDIT-C Answer Date Recorded Q1: How often do you have a drink containing alc ohol? Never 02/26/2021 Average Number of Drinks Not on file 022 Frequency of Binge Drinking Not on file 08/2021 PHQ-2 Answer Date Recorded PHQ2 TOTAL SCORE 5 03/03/2022 Comments No Sex and Gender Information Value Date Recorded Sex Assigned at Female 05/28/2020 12:02 PM CDT Legal Sex Female 7:59 PM CDT Gender Identity Female 05/28/2020 12:02 PM CDT Sexual Orientation Straight 12/01/2020 7: 15 PM CDT Last Filed Vital Signs Vital Sign Reading Time Taken Comments Blood Pressure 94/78 07/30/2024 10:18 AM CDT Pulse 84 07/30/2024 10:18 AM CDT Temperature 36.6 C (97.8 F) 05/17/2022 10:48 AM CDT Respiratory Rate 18 05/17/2022 10:48 AM CDT Oxygen Saturation 98% 07/30/2024 10:18 AM CDT Inhaled Oxygen Concentration - - Weight 111.1 kg (245 lb) 07/30/2024 10:18 AM CDT Height 160 cm (5' 3) 07/30/2024 10:18 AM CDT Body Mass Index 43.4 07/30/2024 10:18 AM CDT Plan of Treatment Upcoming Encounters Date Type Department Care Team (Late st Contact Info) Description 12/30/2024 10:20 AM [facility] Office Visit [facility] [address] [facility] [address] [place] [address] Yosi Jimenez MD [address] [facility] [address] [place] [id number] Health Maintenance Due Date Last Done Comments COLOGUARD (AGES 45-75) - COLON CA SCREENING 1971 CT COLONOGRAPHY - COLON CA SCREENING 1971 FIT - COLON CA SCREENING 1971 FLEX SIG - COLON CA SCREENING 1971 DTAP/TDAP/TD VACCINES (1 - Tdap) 05/11/1990 HEPATITIS B VACCINE (1 of 3 - 19+ 3-dose series) 05/11/1990 PNEUMOCOCCAL VACCINE 50+ (2 of 2 - PCV) 05/11/2021 04/30/2015 ZOSTER VACCINE (1 of 2) 05/11/2021 DEPRESSION SCREENING 02/21/2024 05/17/2022, 05/16/2022, 02/09/2022 SCREENING FOR DIABETES 09/11/2024 2, 02/26/2021, 10/23/2020, Additional history exists COVID-19 VACCINE ( season) 2024 05/13/2021, 11/26/2020, 10/29/2020 INFLUENZA VACCINE (#1) 2024 , 03/08/2021, 12/03/2020, Additional history exists PAP SMEAR 01/21/2025 01/21/2022, 01/21/2022 MAMMOGRAM 12/13/2025 12/14/2023, 11/21, 01/27/2022 COLON MONITORING 08/25/2032 08/25/2022 COLONOSCOPY - COLON CA SCREENING 08/25/2032 08/25/2022 Colorectal Cancer Screening 08/25/2032 HEPATITIS C SCREENING Completed 05/27/2020 HIV SCREENING Completed 05/27/2020 HIB VACCINE Aged Out No longer eligi ble based on patient's age to complete this topic HPV VACCINE Aged Out No longer eligi ble based on patient's age to complete this topic MENINGOCOCCAL (Group B) VACCINE SHARED DECISION-MAKING Aged Out No longer eligible based on patient's age to complete this topic MENINGOCOCCAL GROUPS A/C/Y/W VACCINE Aged Out No longer eligible based on patient's age to complete this topic Medical Devices Implanted Type Area Sample Weaver Device Identifier Shelf Expiration Date Model / Serial / Lot Pipeline Flex Embolization Device Implanted:Qty: 1 on 05/01/2020 at [facility] Left: Carotid [employer] 03/18/2023 PED-[id number] / / [id number] Description:Implanted by Jd Ryan Neurosurgeon Attending Procedures Procedure Name Priority Date/Time Associated Diagnosis Comments COMPREHENSIVE METABOLIC PANEL STAT 09/11/2021 5:01 AM CDT HEPATITIS C AB SCREEN RFLX NAAT QUANT Routine 05/27/2020 5:25 PM CDT Groin pain, right HIV-1 HIV-2 ANTIGEN/ANTIBODY Routine 05/27/2020 5:25 PM CDT Groin pain, right from Last 3 Months or Most Recently Relevant to Health Maintenance Results * (ABNORMAL) COMPREHENSIVE METABOLIC PANEL (09/11/2021 5:01 AM CDT) BUN 17 7 - 26 mg/dL 09/11/2021 5:48 AM [facility] Creatinine 0.98(H) 0.56 - 0.96 mg/dL 09/11/2021 5:48 AM [facility] Sodium 140 136 - 145 mmol/L 09/11/2021 5:48 AM [facility] Potassium 3.6 3.5 - 4.5 mmol/L 09/11/2021 5:48 AM [facility] Chloride 108(H) 98 - 107 mmol/L 09/11/2021 5:48 AM [facility] CO2 23 22 - 29 mmol/L 09/11/2021 5:48 AM [facility] Glucose 143(H) 70 - 115 mg/dL 09/11/2021 5:48 AM [facility] Calcium 8.9 8.4 - 10.2 mg/dL 09/11/2021 5:48 AM [facility] Protein Total 6.5 6.0 - 8.3 g/dL 09/11/2021 5:48 AM [facility] Albumin 3.5 3.4 - 5.0 g/dL 09/11/2021 5:48 AM [facility] Bilirubin Total 0.2 0.2 - 1.2 mg/dL 09/11/2021 5:48 AM [facility] Alkaline Phosphatase 121 40 - 150 U/L 09/11/2021 5:48 AM [facility] ALT 16 5 - 55 U/L 09/11/2021 5:48 AM [facility] AST 15 5 - 34 U/L 09/11/2021 5:48 AM [facility] Anion Gap 13 8 - 18 09/11/2021 5:48 AM [facility] BUN/Creatinine Ratio 17 7 - 23 09/11/2021 5:48 AM [facility] Osmolality Calculated 294 270 - 300 mOsm/kg 09/11/2021 5:48 AM [facility] Albumin/Globulin Ratio 1.2 1.1 - 2.3 09/11/2021 5:48 AM [facility] eGFR by CKD-EPI 70(L) >=90 mL/min/1.7 3 m2 09/11/2021 5:48 AM CDT [facility] Blood BLOOD SPECIMEN / Unknown Venipuncture / Unknown 09/11/2021 5:01 AM CDT 09/11/2021 5:16 AM CDT Yamileth Wood PA-C LAB - CHEMISTRY ORDERABLES Final Result Performing Organization Address [facility]/ZIP Co de Phone Number [address] [address], [facility] [phone] * HIV-1 HIV-2 ANTIGEN/ANTIBODY (05/27/2020 5:25 PM CDT) HIV Antigen/Antibod y 1 & 2 Non-reacti ve Non-react michelle 05/27/2020 6:25 PM CDT [facility] Comment:Neither HIV-1 p24 An tigen nor HIV-1/HIV-2 Antibodies are detected. Blood BLOOD SPECIMEN / Unknown Lab Venipuncture / Unknown 05/27/2020 5:25 PM CDT 05/27/2020 5:35 PM CDT Jose Stewart MD LAB - HEMATOLOGY ORDERABLES Final Result Performing Organization Address City/[facility] Co de Phone Number [address] [address], [facility] [phone] * HEPATITIS C AB SCREEN RFLX NAAT QUANT (05/27/2020 5:25 PM CDT) Hepatitis C Antibody Non-react michelle Non-reac tive 05/27/2020 6:25 PM CDT [facility] Comment:Hepatitis C Antibody screen indicates no serologic evidence of past or current infection with Hepatitis C Virus. Patients with unexplained liver disease who are immunocompromised or suspected of having acute Hepatitis C infection may benefit from Nucleic Acid Test (RAMÍREZ) for Hepatitis C Viral RNA to confirm Hepatitis C status. Blood BLOOD SPECIMEN / Unknown Lab Venipuncture / Unknown 05/27/2020 5:25 PM CDT 05/27/2020 5:35 PM CDT Jose Stewart MD LAB - CHEMISTRY ORDERABLES F inal Result [facility] [address] [place] [address], [facility] [phone] from Last 3 Months or Most Recently Relevant to Health Maintenance Insurance [employer] Advance Directives * Full Code (Latest Code Status on File) Date Activated Date Inactivated Comments 05/26/2020 12:12 PM 05/28/2020 1:57 PM * Full Code Date Activated Date Inactivated Comments 05/01/2020 12:23 PM 05/02/2020 4:33 PM Care Teams Counter Clerk Relationship Specialty Start Date End Date Carroll La MD [address] [place] [address] PCP - General Family Medicine 04/30/24 Clemencia Collado MD [address] OF [place]UROLOGY [place], [place] Resident Student Resident 06/10/20
--- OUTSIDE RECORDS SUMMARY | 2024-11-15 18:29 | XMS_ITS | Encounter Summary ---
Author Organization [facility] Address [address] [place] [address] Care Team Providers Care Construction Field Engineer Name Role Phone Melissa Doss DO Primary Care Provider [phone] Melissa Doss DO Primary Care Provider [phone] None, Provider Primary Care Provider Carroll Yang MD Primary Care Provider [phone] Encounter Details Date Type Department Care Team (Late st Contact Info) Description 12/30/2021 Deskwantedt Message Enc [facility] Family Medicine - [place] [address], [address] [place] [address] SelamMelissa white, DO [address] [place], [place] [id number] Nail fungus Social History Tobacco Use Types Packs/Day Years [...] Sex Assigned at Female 03/21/2024 5:01 PM SYSTEMS INTEGRATION MANAGER Legal Sex Female 10:42 PM CDT Gender Identity Female 05/10/2021 12:51 PM CDT Sexual Orientation Straight 11/10/2021 5: 43 AM CDT COVID-19 Exposure Response Date Recorded In the last 10 days, have michael lyons been in contact with someone who was confirmed or suspected to have Coronavirus/COVID-19? No / Unsure 12/28/2021 9:08 AM SYSTEMS INTEGRATION MANAGER documented as of this encounter Functional Status * RETIRED Are you deaf or do you have serious difficulty hearing Answer Date of Assessment Author Status No 01/01/2020 2:43 PM SYSTEMS INTEGRATION MANAGER Activ e * RETIRED Are you blind or do you have serious difficulty seeing, even when wearing glasses? Answer Date of Assessment Author Status No 01/01/2020 2:43 PM SYSTEMS INTEGRATION MANAGER Activ e * Do you have serious [...] documented as of this encounter Care Teams Construction Field Engineer Relationship Specialty Start Date End Date Melissa Doss DO [address] [place] [id number] PCP - General FAMILY PRACTICE 11/10/21 07/15/22 Melissa Doss DO [address] [place] [address] PCP - General FAMILY PRACTICE 01/16/23 01/19/23 None, Provider, PCP - General UNKNOWN PHYSICIAN SPECIALTY 02/19/23 12/13/23 Carroll La MD [address] [place] [phone] PCP - General FAMILY PRACTICE 12/14/23 documented as of this encounter
--- OUTSIDE RECORDS SUMMARY | 2024-11-15 18:30 | XMS_ITS | Clinical Summary ---
Author Organization [facility] Address [facility] [place] [address] Care Team Providers Care Slab Puller Name Role Phone Tico La MD Primary Care Provider [phone] Allergies Active Allergy Reactions Criticality Noted Date Comments Codeine Fatigue Low 03/05/2019 Ibuprofen Other (see comment),Unknown Low 04/11/2021 Neurologist told patient not to take Medications omeprazole (PRILOSEC) 40 MG capsuleIndications :Gastroesophageal reflux disease without esophagitis TAKE 1 CAPSULE (40 MG TOTAL) BY MOUTH DAILY. 90 capsule 1 05/21/19 23 Active Multiple Vitamin (ONE-DAILY MULTI-VITAMIN) TabIndications:Gas troesophageal reflux disease without esophagitis,Dry eye,Screening for eye condition,Mixed hyperlipidemia TAKE 1 TABLET BY MOUTH DAILY 90 tablet 1 05/21/19 23 Active Additional Information Patient taking differently: 1 tablet Oral Daily, Reported on 03/21/2024 fluticasone propionate (FLONASE) 50 MCG/ACT nasal sprayIndications:A llergic rhinitis SPRAY 1 SPRAY INTO EACH NOSTRIL EVERY DAY 16 mL 05/24/19 23 Active Additional Information Patient taking differently: 1 spray Each Nostril Daily, Reported on 03/21/2024 atorvastatin (LIPITOR) 80 MG tabletIndications: TIA (transient ischemic attack),Prediabete s TAKE 1 TABLET BY MOUTH EVERYDAY AT BEDTIME 30 tablet 07/12/19 23 Active Additional Information Patient taking differently: 80 mg Oral Nightly at bedtime, Reported on 03/21/2024 aspirin EC (ECOTRIN) 81 MG tablet Take 1 tablet (81 mg total) by mouth daily. Active prednisoLONE acetate (PRED FORTE) 1 % ophthalmic suspension Place 1 drop into the right eye 2 (two) times daily. 12/28/19 Active Metamucil Fiber 2 g Chew Tab Chew 1 Dose by mouth daily. Active Active Problems Problem Noted Date Diagnosed Date CVA (cerebral vascular accident) ([facility]/HC C) 05/13/2022 Chronic pain of right ankle 12/28/2021 Thickened nails 12/28/2021 Whiplash 12/12/2021 Actinic keratosis 06/24/2021 Overview (11/10/2021): Last Assessment & Plan: Left forearm, left base of the neck. Both lesions treated with Histofreezer. Patient tolerated procedure well. I discussed with patient that if this procedure will not improve lesions after 4 weeks, call back for referral to Derm. Neck pain 05/27/2021 Overview (11/10/2021): Last Assessment & Plan: Persistent for 6 weeks. Pt couldn't tolerate prednisone pack presctibed 05/27 due to spiking BP. Will check xray and refer for PT. Last Assessment & Plan: Given instructions on neck stretching. Start prednisone taper. Would also try heat 20-30 minutes every 2 - 3 hours. Mucous retention cyst of maxillary sinus 022 Overview (11/10/2021): Last Assessment & Plan: Has not started antibiotics yet because of insurance coverage. She start on cetirizine. Last Assessment & Plan: Has not started antibiotics yet because of insurance coverage. She start on cetirizine. Borderline personality disorder in adult (CMS/HC C [facility]) 04/11/2021 History of 2019 novel coronavirus disease (COVID -19) 04/11/2021 Eczema of scalp 03/09/2021 Overview (11/10/2021): Last Assessment & Plan: With periodic flare ups. Had it on face. Most recently on bilateral lower legs. Went to ER for that on 06/20. Responded well to triamcinolone cream. Continue as needed. Last Assessment & Plan: Will try triamcinolone cream twice a day History of cerebral aneurysm 03/09/2021 Overview (11/10/2021): Last Assessment & Plan: S/p stent. Continue clopidigrel. Follows with Dr. Kitchen at [facility]. Hyperglycemia 03/09/2021 Overview (11/10/2021): Last Assessment & Plan: Will plan to check a hemoglobin A1c Last Assessment & Plan: Will plan to check a hemoglobin A1c Ingrown toenail of both feet 03/09/2021 Overview (11/10/2021): Last Assessment & Plan: Will refer to podiatry Last Assessment & Plan: Will refer to podiatry Morbid obesity with body mass index of 40.0-44.9 in adult 03/09/2021 Overview (11/10/2021): Last Assessment & Plan: BMI Follow-up includes: exercise counseling. Non-seasonal allergic rhinitis 03/09/2021 Overview (11/10/2021): Last Assessment & Plan: Stable on Flonase Last Assessment & Plan: Stable on Flonase Gastro-esophageal reflux disease without esophag itis 02/18/2021 Overview (05/16/2022): K21.9 - Gastrointestinal - low Added by Interface Scoliosis, unspecified 12/02/2020 Overview (05/16/2022): M41.9 - Skeletal - medium Added by Interface Fibroid 06/11/2020 Migraine without aura and wi thout status migrainosus, not intractable 06/11/2020 Groin pain, right 05/26/2020 TIA (transient ischemic attack) 04/23/2020 Mixed hyperlipidemia 04/23/2020 Class 3 severe obesity due t o excess calories without serious comorbidity in adult 04/23/2020 GERMÁN (generalized anxiety disorder) 04/22/2020 Cerebral aneurysm (HHS/HCC) 01/01/2020 Hand pain, right 03/07/2019 Numbness and tingling in both hands 04/01/2013 Resolved Problems Problem Noted Date Diagnosed Date Resolved Date Well woman exam with routine gynecological exam 01/21/2022 01/24/2022 Sprain of anterior talofibul ar ligament of left ankle 07/31/2019 04/23/2020 Pain in knee 04/11/2013 04/22/2020 Low back pain 04/01/2013 04/23/2020 Immunizations Immunization Administration Dates Next Due Fluzone 6 Months+ Quad (0.5 mL Prefilled Syringe) 11/10/2021,01/02/2020 Influenza (Generic) 04/30/2015 Influenza Adult (Generic) 03/08/2021,12/03/2020, 04/30/2015 MODERNA COVID-19 (12+) MRNA, LNP-S, PF, 100 MCG/ 0.5 ML DOSE 11/26/2020,10/29/2020 MODERNA COVID-19 (FUR BLOWER OPERATOR FATMATA CAROLINE), MRNA, LNP-S, PF, 50 MCG/ 0.25 ML DOSE 05/13/2021 Pneumococcal (Pneumovax 23) 04/30/2015 Family History Medical History Relation Comments Hypertension Father Esophageal cancer Maternal Grandmother Colon Cancer Maternal Uncle Brain cancer Mother BRAIN TUMOR COPD Mother Depression Mother Kidney Disease Mother kidney disease (30s) Mother Relation Status Comments Father Maternal Grandmother Maternal Uncle Mother Social History Tobacco Use Types Packs/Day Years Used Date Smoking Tobacco: Former Cigarettes 1 5 1 - 12/04/2020 Smokeless Tobacco: Never Tobacco Cessation:Counseling Given: Not Answered Comments:>4 years Physician will discuss if necessary [...] Sex Assigned at Female 03/21/2024 5:01 PM STEFFEN HOUSE SUPERVISOR Legal Sex Female 10:42 PM CDT Gender Identity Female 05/10/2021 12:51 PM CDT Sexual Orientation Straight 11/10/2021 5: 43 AM CDT Last Filed Vital Signs Vital Sign Reading Time Taken Comments Blood Pressure 128/78 04/11/2024 2:06 PM [employer]EN HOUSE SUPERVISOR Pulse 98 04/11/2024 2:06 PM STEFFEN HOUSE SUPERVISOR Temperature 37 C (98.6 F) 04/11/2024 11:50 AM STEFFEN HOUSE SUPERVISOR Respiratory Rate 20 04/11/2024 2:06 PM STEFFEN HOUSE SUPERVISOR Oxygen Saturation 98% 04/11/2024 2:06 PM STEFFEN HOUSE SUPERVISOR Inhaled Oxygen Concentration - - Weight 111.1 kg (245 lb) 04/11/2024 11:50 AM STEFFEN HOUSE SUPERVISOR Height 160 cm (5' 3) 04/11/2024 11:50 AM STEFFEN HOUSE SUPERVISOR Body Mass Index 43.4 04/11/2024 11:50 AM STEFFEN HOUSE SUPERVISOR Plan of Treatment Health Maintenance Due Date Last Done Comments ASCVD Statin 1970 Colorectal Cancer Screening Colonoscopy (10 Years) 1970 DTaP, Tdap and Td Vaccines (1 - Tdap) 05/11/1990 Hepatitis B Vaccines (1 of 3 - 19+ 3-dose series) 05/11/1990 Pneumococcal Vaccine: 50+ Years (2 of 2 - PCV) 05/11/2021 04/30/2015 Zoster Vaccines (2 of 2) 09/03/2021 07/09/2021 Annual Physical 01/21/2023 01/21/2022 ASCVD LDL 05/15/2023 05/14/2022, 11/0 09/2021, 12/03/2020, Additional history exists PHQ-2 ([facility]ician [facility]) 02/21/2024 COVID-19 Vaccine ( season) 2024 05/13/2021, 11/26/2020, 10/29/2020 Cervical Cancer Screening Pap Smear (Age 30 to 64) Every 3 Years 01/21/2025 01/21/2022 Mammogram Screening 12/13/2025 12/14/2023, Cervical Cancer Screening Pap with HPV Testing (Age 30 to 64) Every 5 Years 01/21/2027 01/21/2022 Cervical Cancer Screening with HPV 01/21/2027 Hepatitis C Completed 05/27/2020 Meningococcal B Vaccine Aged Out No l onger eligible based on patient's age to complete this topic Meningococcal Vaccine Aged Out No chivo shayan eligible based on patient's age to complete this topic RSV Immunizations Under 20 Months Aged Out No longer eligible based on patient's age to complete this topic Procedures Procedure Name Priority Date/Time Associated Diagnosis Comments MG SCREENING W LINSEY ASH DIGI Routine 12/14/2023 3:55 PM CDT Encounter for screening mammogram for malignant neoplasm of breast LIPID PANEL Routine 05/14/2022 5:30 AM CDT HUMAN PAPILLOMAVIRUS, HIGH-RISK TYPES Routine 01/21/2022 12:00 PM [employer]EN [employer]SE SUPERVISOR CYTOPATH CERV/VAG THIN LAYER Routine 01/21/2022 8:41 AM STEFFEN HOUSE SUPERVISOR from Last 3 Months or Most Recently Relevant to Health Maintenance Results * MG SCREENING W LINSEY ASH DIGI (12/14/2023 3:55 PM CDT) Anatomical Region Laterality Modality Breast Bilateral Mammography 12/14/2023 3:59 PM CDT Impressions 12/14/2023 3:59 PM CDT IMPRESSION: No suspicious mammographic findings. Recommendation: 1. Routine Screening, Bilateral Assessment: ACR BI-RADS 2 - BENIGN FINDING(S) Ordered By: TCIO LA Interpreted By: Emerson Fuentes, 12/14/2023 3:59 PM Narrative 12/14/2023 3:59 PM CDT [facility] [place] [address] Examination: Screening bilateral mammogram Exam Date/Time: 12/14/2023 3:41 PM Clinical history: No current complaints. Comparison: 01/27/2022 Technique: Digital screening mammography of both breasts was performed. Breast tomosynthesis acquisitions were obtained and reviewed. This study was read with the assistance of a computer-aided detection system. Tissue density: There are scattered areas of fibroglandular density. Findings: No suspicious masses, malignant appearing calcifications, skin thickening or other abnormalities are present. No significant change from the prior exam. us Tico La MD MAMMO Final Result * (ABNORMAL) LIPID PANEL (05/14/2022 5:30 AM CDT) CHOLESTEROL 191 <200 MG/DL 05/14/2022 6:21 AM CDT [facility] TRIGLYCERIDES 149 <150 MG/DL 05/14/2022 6:21 AM CDT [facility] HDL 40(L) >40.0 MG/DL 05/14/2022 6:21 AM CDT [facility] LDL (CALCULATED) 121(H) <100 MG/DL 05/14/2022 6:21 AM CDT [facility] NON HDL CHOLESTEROL 151(H) <130 MG/DL 05/14/2022 6:21 AM CDT [facility] CHOL/HDL RATIO 4.8(H) 0.0 - 4.5 05/14/2022 6:21 AM CDT [facility] VLDL CALCULATION 30 5 - 55 MG/DL 05/14/2022 6:21 AM CDT [facility] LIPID INTERPRETATION 05/14/2022 6:21 AM CDT [facility] Comment: NIH CONCENSUS REPORT RECOMMENDATIONS: ADULT CHILD LOW RISK: CHOLESTEROL <200 <170 TRIGLYCERIDE <150 --- HDL >=60 --- LDL <100 <110 BORDERLINE: CHOLESTEROL 200-239 170-199 TRIGLYCERIDE 150-199 --- HDL 40-59 --- LDL 100-159 110-129 HIGH RISK: CHOLESTEROL >=240 >=200 TRIGLYCERIDE >=200 --- HDL <40 --- LDL >=160 >=130 05/14/2022 5:30 AM CDT us Kika Stearns NP LABORATORY Final Result [facility] [address] [place] [address], [place] [phone] * HUMAN PAPILLOMAVIRUS, HIGH-RISK TYPES (01/21/2022 12:00 PM [employer]FFEN HOUSE SUPERVISOR) SPEC DESCRIPTION CERVICAL/END OCERVICAL 01/31/2022 9:57 AM STEFFEN HOUSE SUPERVISOR [facility] HPV DNA HIGH RISK NEGATIVE NEGATIVE 01/31/2022 6:09 PM STEFFEN HOUSE SUPERVISOR [facility] Comment:SEE CYTOLOGY REPORT 01/21/2022 12:0 0 PM [employer] SUPERVISOR us Sangita Selam DO PATHOLOGY/CYTOLOGY ORDERABLES F inal Result [facility] [address] [place] [address], [place] [phone] * Cytopath Cerv/Vag Thin Layer (01/21/2022 8:41 AM STEFFEN [employer]SE SUPERVISOR) THIN PREP PAP [facility] [address] [place] [address] Department of Pathology Pathology Report CERVICAL/VAGINAL PAP SMEAR REPORT Name: TRACIE DUMONT Age: 3 1970 (Age: 51) Location: [facility] Sex: F Collected Date: 01/21/2022 Hospital #: [id number] Date Received: 01/31/2022 Date Reported: 02/03/2022 Provider: SANGITA HE DO INTERPRETATION CERVICAL/ENDOCERVI THERESA: SATISFACTORY FOR EVALUATION. ENDOCERVICAL/TRANS FORMATION ZONE COMPONENT PRESENT. NEGATIVE FOR INTRAEPITHELIAL LESION OR MALIGNANCY. NEGATIVE FOR HIGH RISK HPV. The FDA approved Aptima HPV assay is an in vitro nucleic acid amplification test for the qualitative detection of E6/E7 viral messenger RNA (mRNA) from 14 high-risk types of human papillomavirus (HPV) in cervical specimens. The high-risk HPV types detected by the assay include: 16,18,31,33,35,39, 45,51,52,56,58,59, 66, and 68. Electronically Signed Out By TIBURCIO Jose (ASCP) CLINICAL HISTORY Z01.419 SCREENING PAP TEST WELL WOMAN EXAM ThinPrep Pap Test with HR HPV testing in patient > 30 years requested. Date of Last Menstrual Period: 01/03/22 Menstrual Status: Regular SPECIMEN SUBMITTED CERVICAL/ENDOCERVI THERESA Specimen Received:1 Thin Prep Vial, Image Assisted Pap (SMD) Please note: The Pap smear is not a diagnostic test. It is a screening test. Negative results on combined screening (Pap test and HPV-DNA) have a high negative predictive value (99.1-100 percent) for cervical cancer. The pap test is not effective in detecting cervical adenocarcinoma. [facility] 01/21/2022 8:41 AM STEFFEN HOUSE SUPERVISOR 01/31/2022 8:41 AM [employer]EN HOUSE SUPERVISOR Comment:CERVICAL/ENDOCERVICA L us Sangitapadmini He DO PATHOLOGY/CYTOLOGY ORDERABLES F inal Result [facility] [address] [place] [address], from Last 3 Months or Most Recently Relevant to Health Maintenance Insurance [employer] Advance Directives * Full Code (Latest Code Status on File) Date Activated Date Inactivated Comments 05/13/2022 11:14 AM 05/14/2022 2:33 PM * Full Code Date Activated Date Inactivated Comments 01/01/2020 8:44 PM 01/02/2020 7:14 PM * Full Code Date Activated Date Inactivated Comments 01/01/2020 2:57 PM 01/01/2020 8:44 PM Care Teams Slab Puller Relationship Specialty Start Date End Date Tico La MD [address] [facility] [address] [place] [address] PCP - General FAMILY PRACTICE 12/14/23
--- OUTSIDE RECORDS SUMMARY | 2024-11-15 18:30 | XMS_ITS | Encounter Summary ---
Author Organization [facility] Address [address] [place] [address] Care Team Providers Care Senior Planning Manager Name Role Phone Clemencia Collado MD Unavailable [phone] Devaughn Manuel MD Primary Care Provider + Melissa Doss DO Primary Care Provider [phone] Carroll La MD Primary Care Provider [phone] Reason for Visit * Reason Onset Date Comments MEDICATION REFILL 05/09/2021 Encounter Details Date Type Department Care Team (Late st Contact Info) Description 05/09/2021 Refill [facility] [address] [facility] [place] [phone] Mikhail Fink APRN-JOSE MANUEL [facility] [place] [address] MEDICATION REFILL Social History Tobacco Use Types Packs/Day Years Used Date Smoking Tobacco: Former Cigarettes Q uit: 01/06/2020 Smokeless Tobacco: Never Alcohol Use Standard Drinks/Week Comments Not Currently 0 (1 standard drink = 0.6 oz pur e alcohol) AUDIT-C Answer Date Recorded Q1: How often do you have a drink containing alc ohol? Never 02/26/2021 Average Number of Drinks Not on file 022 Frequency of Binge Drinking Not on file 08/2021 Comments No Sex and Gender Information Value Date Recorded Sex Assigned at Female 05/28/2020 12:02 PM CDT Legal Sex Female 7:59 PM CDT Gender Identity Female 05/28/2020 12:02 PM CDT Sexual Orientation Straight 12/01/2020 7: 15 PM CDT documented as of this encounter Functional Status * Is person deaf or have serious hearing difficulty? Answer Date of Assessment Author No 05/28/2020 9:29 AM CDT Danay, Sa abdirizak, ATTENDING PSYCHIATRIST-IMPORT/EXPORT ANALYST * Is person blind or have serious difficulty seeing? Answer Date of Assessment Author No 05/28/2020 9:29 AM CDT Danay, Sa abdirizak, ATTENDING PSYCHIATRIST-IMPORT/EXPORT ANALYST * Does person have serious difficulty walking/climbing stairs? Answer Date of Assessment Author No 05/28/2020 9:29 AM CDT Danay, Sa abdirizak, ATTENDING PSYCHIATRIST-IMPORT/EXPORT ANALYST * Does person have difficulty dressing/bathing? Answer Date of Assessment Author No 05/28/2020 9:29 AM CDT Danay, Sa abdirizak, ATTENDING PSYCHIATRIST-IMPORT/EXPORT ANALYST * Does person have difficulty doing errands alone? Answer Date of Assessment Author No 05/28/2020 9:29 AM CDT Danay, Sa manturiah, ATTENDING PSYCHIATRIST-IMPORT/EXPORT ANALYST documented as of this encounter Mental Status * Does person have difficulty concentrating/remembering/making decisions? Answer Entry Date Author No 05/28/2020 9:29 AM CDT Danay Sa abdirizak, ATTENDING PSYCHIATRIST-IMPORT/EXPORT ANALYST documented in this encounter Plan of Treatment Upcoming Encounters Date Type Department Care Team (Late st Contact Info) Description 12/30/2024 10:20 AM HANDKERCHIEF SAMPLE CLERK Office Visit [facility] Neurosciences [address] [facility] [address] [place] [address] Yosi Jimenez MD [address] [facility] [address] [place] [address] documented as of this encounter Visit Diagnoses Diagnosis Migraine without aura and without status migrainosus, not intractable Migraine without aura, without mention of intractable migraine without mention of status migrainosus documented in this encounter Care Teams Senior Planning Manager Relationship Specialty Start Date End Date Devaughn Manuel MD [address] [place] [address] PCP - General Internal Medicine 02/26/21 11/10/21 Melissa Doss DO [address] [place] [address] PCP - General 11/11/21 04/29/24 Carroll La MD [address] [address] PCP - General Family Medicine 04/30/24 Clemencia Collado MD [address] OF NEUROLOGY [place], [place] Resident Student Resident 06/10/20 documented as of this encounter
--- OUTSIDE RECORDS SUMMARY | 2024-11-15 18:30 | XMS_ITS | Encounter Summary ---
Author Organization [facility] Address [address] [place] [address] Care Team Providers Care Cook 3 Pastry Name Role Phone Clemencia Collado MD Unavailable Melissa Doss DO Primary Care Provider Carroll La MD Primary Care Provider [phone] Reason for Visit * Reason Onset Date Comments MEDICATION REFILL 04/21/2022 Encounter Details Date Type Department Care Team (Late st Contact Info) Description 04/21/2022 Refill [facility] [address] [facility] [place] [address] Mikhail Fink, SOLUTIONS ENGINEER-CUSTODIAL ENGINEER [address] [place] [phone] MEDICATION REFILL Social History Tobacco Use Types [...] Assessment Author No 05/28/2020 9:29 AM CDT DanaySa abdirizak kent, SOLUTIONS ENGINEER-CUSTODIAL ENGINEER * Is person blind or have serious difficulty seeing? Answer Date of Assessment Author No 05/28/2020 9:29 AM CDT Danay, Sa abdirizak, SOLUTIONS ENGINEER-CUSTODIAL ENGINEER * Does person have serious difficulty walking/climbing stairs? Answer Date of Assessment Author No 05/28/2020 9:29 AM CDT Danay, Sa abdirizak, SOLUTIONS ENGINEER-CUSTODIAL ENGINEER * Does person have difficulty dressing/bathing? Answer Date of Assessment Author No 05/28/2020 9:29 AM CDT Danay, Sa abdirizak, SOLUTIONS ENGINEER-CUSTODIAL ENGINEER * Does person have difficulty doing errands alone? Answer Date of Assessment Author No 05/28/2020 9:29 AM CDT Danay, Sa abdirizak, SOLUTIONS ENGINEER-CUSTODIAL ENGINEER documented as of this encounter Mental Status * Does person have difficulty concentrating/remembering/making decisions? Answer Entry Date Author No 05/28/2020 9:29 AM CDT Danay Sa abdirizak, SOLUTIONS ENGINEER-CUSTODIAL ENGINEER documented in this encounter Plan of Treatment Upcoming Encounters Date Type Department Care Team (Late st Contact Info) Description 12/30/2024 10:20 AM MANAGER OUTREACH Office Visit [facility] Neurosciences [address] [facility] [address] [place] [address] Yosi Jimenez MD [address] [facility] [address] [place] [phone] documented as of this encounter Visit Diagnoses Diagnosis Migraine without aura and without status migrainosus, not intractable Migraine without aura, without mention of intractable migraine without mention of status migrainosus documented in this encounter Care Teams Cook 3 Pastry Relationship Specialty Start Date End Date Melissa Doss [facility] [place] [address] PCP - General 11/11/21 04/29/24 Carroll La MD [address] [facility] [address] [place] [phone] PCP - General Family Medicine 04/30/24 Clemencia Collado MD [address] OF NEUROLOGY [place], [place] Resident Student Resident 06/10/20 documented as of this encounter
--- OUTSIDE RECORDS SUMMARY | 2024-11-15 18:30 | XMS_ITS | Encounter Summary ---
Author Organization [facility] Address [address] [place] [address] Care Team Providers Care Signs And Displays Salesperson Name Role Phone Melissa Doss DO Primary Care Provider [phone] Devaughn Manuel MD Primary Care Provider [phone] Melissa Doss DO Primary Care Provider [phone] Melissa Doss DO Primary Care Provider [phone] None, Provider Primary Care Provider Carroll Yang MD Primary Care Provider [phone] Encounter Details Date Type Department Care Team (Late st Contact Info) Description 07/12/2020 [employer] Message Enc [facility] Medical Group Family Medicine - [place] [address], [address] [place] [address] Melissa Doss DO [address] [place] [address] Medication Questions Social History Tobacco Use Types Packs/Day Years Used Date Smoking Tobacco: Former Cigarettes Smokeless Tobacco: Never Comments:>4 years Alcohol [...] please move on to questions 3-9 0 07/13/2020 Comments No Sex and Gender Information Value Date Recorded Sex Assigned at Female 03/21/2024 5:01 PM CLIP ON SUNGLASSES ASSEMBLER Legal Sex Female 10:42 PM CDT Gender Identity Female 05/10/2021 12:51 PM CDT Sexual Orientation Straight 11/10/2021 5: 43 AM CDT COVID-19 Exposure Response Date Recorded In the last month, have you been in contact with someone who was confirmed or suspected to have Coronavirus / COVID-19? No / Unsure 06/24/2020 10:11 AM CDT documented as of this encounter Functional Status * RETIRED Are you deaf or do you have serious difficulty hearing Answer Date of Assessment Author Status No 01/01/2020 2:43 PM CLIP ON SUNGLASSES ASSEMBLER Activ e * RETIRED Are you blind or do you have serious difficulty seeing, even when wearing glasses? Answer Date of Assessment Author Status No 01/01/2020 2:43 PM CLIP ON SUNGLASSES ASSEMBLER Activ e * Do you have serious difficulty walking or climbing stairs? Answer Date of Assessment Author Status No 01/01/2020 2:43 PM CLIP ON SUNGLASSES ASSEMBLER Emma Mendez RN Active * Do you have difficulty [...] Rule Out 02/18/2021 02/18/2021 02/19/2021 1:01 PM CLIP ON SUNGLASSES ASSEMBLER COVID-19 Confirmed 02/18/2021 02/18/2021 12:32 AM CLIP ON SUNGLASSES ASSEMBLER COVID-19 Rule Out 11/15/2021 11/15/2021 11/16/2021 11:55 PM CDT Assessment Noted Time PHQ-9 Depression Total Score: 1 06/25/19 11:11 AM CDT documented as of this encounter Care Teams Signs And Displays Salesperson Relationship Specialty Start Date End Date Melissa Doss DO [facility] [place] [address] PCP - General FAMILY PRACTICE 04/22/20 01/15/21 Devaughn Manuel MD [address] [place] [address] PCP - General INTERNAL MEDICINE 01/16/21 11/09/21 Melissa Doss DO [facility] [place] [address] PCP - General FAMILY PRACTICE 11/10/21 07/15/22 Melissa Doss DO [address] [place] [address] PCP - General FAMILY PRACTICE 01/16/23 01/19/23 None, MD [place] PCP - General UNKNOWN PHYSICIAN SPECIALTY 02/19/23 12/13/23 Carroll La MD [address] [place] [phone] PCP - General FAMILY PRACTICE 12/14/23 documented as of this encounter
--- OUTSIDE RECORDS SUMMARY | 2024-11-15 18:30 | XMS_ITS | Encounter Summary ---
Author Organization [facility] Health Address [address] [facility] [place] [address] Care Team Providers Care Materials Scientist Name Role Phone Melissa Doss DO Primary Care Provider [phone] Sudhakar Sloan CHIEF PHARMACIST-TRANSMITTER OPERATOR Primary Care Provider Bethany vailable Clemencia Collado MD Unavailable [phone] Melissa Doss DO Unavailable [phone] Devaughn Manuel MD Primary Care Provider + Melissa Doss DO Primary Care Provider [phone] Carroll La MD Primary Care Provider [phone] Reason for Visit * Reason Onset Date Comments MEDICATION REFILL 05/25/2020 Encounter Details Date Type Department Care Team (Late st Contact Info) Description 05/25/2020 Refill [facility] [address] [place] [address] Melissa Doss DO [address] [place] [address] MEDICATION REFILL Social History Tobacco Use Types Packs/Day Years Used Date Smoking Tobacco: Former Cigarettes Q uit: 01/06/2020 Smokeless Tobacco: Never Alcohol Use Standard Drinks/Week Comments Not Currently 0 (1 standard drink = 0.6 oz pur e alcohol) Comments No Sex and Gender Information Value Date Recorded Sex Assigned at Female 05/28/2020 12:02 PM CDT Legal Sex Female 7:59 PM CDT Gender Identity Female 05/28/2020 12:02 PM CDT Sexual Orientation Straight 12/01/2020 7: 15 PM CDT COVID-19 Exposure Response Date Recorded In the last month, have you been in contact with someone who was confirmed or suspected to have Coronavirus / COVID-19? No / Unsure 05/11/2020 11:40 AM CDT documented as of this encounter Plan of Treatment Upcoming Encounters Date Type Department Care Team (Late st Contact Info) Description 12/30/2024 10:20 AM CUSTOMER CONTACT SALES ASSOCIATE Office Visit [facility] Neurosciences [address] [facility] [address] [place] [address] Yosi Jimenez MD [address] [facility] [address] [place] [address] documented as of this encounter Visit Diagnoses Not on filedocumented in this encounter Care Teams Materials Scientist Relationship Specialty Start Date End Date Melissa Doss DO [address] [place] [address] PCP - General Family Medicine 05/01/20 05/27/20 Sudhakar Sloan, CHIEF PHARMACIST-TRANSMITTER OPERATOR [address] [place] [address] PCP - General 05/28/20 02/25/21 Melissa Doss DO [address] [place] [address] PCP - Attributed-[employer] [place] 03/23/20 08/11/20 Devaughn Manuel MD [address] [place] [address] PCP - General Internal Medicine 02/26/21 11/10/21 Melissa Doss DO [address] [place] [address] PCP - General 11/11/21 04/29/24 Carroll La MD [address] [facility] [address] [place] [address] [place] [phone] PCP - General Family Medicine 04/30/24 Clemencia Collado MD [address] OF NEUROLOGY [place], [place] Resident Student Resident 06/10/20 documented as of this encounter
--- OUTSIDE RECORDS SUMMARY | 2024-11-15 18:30 | XMS_ITS | Encounter Summary ---
Author Organization [facility] Address [address] [place] [address] Care Team Providers Care Bridge Painter Helper Name Role Phone Melissa Doss DO Primary Care Provider [phone] Devaughn Manuel MD Primary Care Provider [phone] Melissa Doss DO Primary Care Provider [phone] Melissa Doss DO Primary Care Provider [phone] None, Provider Primary Care Provider Carroll Yang MD Primary Care Provider [phone] Encounter Details Date Type Department Care Team (Late st Contact Info) Description 06/23/2020 [employer] Message Enc [facility] Medical Group Family Medicine - [place] [address] [facility], [address] [place] [address] Melissa Doss DO [address] [place] [address] RE: Question Social History Tobacco Use Types Packs/Day Years [...] please move on to questions 3-9 0 06/24/2020 Comments No Sex and Gender Information Value Date Recorded Sex Assigned at Female 03/21/2024 5:01 PM CUSTOMER ENGAGEMENT MANAGER Legal Sex Female 10:42 PM CDT [...] Assessment Author Status No 01/01/2020 2:43 PM CUSTOMER ENGAGEMENT MANAGER Activ e * RETIRED Are you blind or do you have serious difficulty seeing, even when wearing glasses? Answer Date of Assessment Author Status No 01/01/2020 2:43 PM CUSTOMER ENGAGEMENT MANAGER Activ e * Do you have serious difficulty walking or climbing stairs? Answer Date of Assessment Author Status No 01/01/2020 2:43 PM CUSTOMER ENGAGEMENT MANAGER Emma Mendez RN Active * Do you [...] Silvestre RN Active documented in this encounter Progress Notes * Melissa Doss DO - 06/23/2020 11:55 AM CDT Please double book for tomorrow 900am or 1000am documented in this encounter Plan of Treatment [...] Rule Out 02/18/2021 02/18/2021 02/19/2021 1:01 PM CUSTOMER ENGAGEMENT MANAGER COVID-19 Confirmed 02/18/2021 02/18/2021 12:32 AM CUSTOMER ENGAGEMENT MANAGER COVID-19 Rule Out 11/15/2021 11/15/2021 11/16/2021 11:55 PM CDT documented as of this encounter Care Teams Bridge Painter Helper Relationship Specialty Start Date End Date Melissa Doss DO [address] [place] [address] PCP - General FAMILY PRACTICE 04/22/20 01/15/21 Devaughn Manuel MD [address] [place] [address] PCP - General INTERNAL MEDICINE 01/16/21 11/09/21 Melissa Doss DO [facility] [place] [address] PCP - General FAMILY PRACTICE 11/10/21 07/15/22 Melissa Doss DO [address] [place] [address] PCP - General FAMILY PRACTICE 01/16/23 01/19/23 None, [place], PCP - General UNKNOWN PHYSICIAN SPECIALTY 02/19/23 12/13/23 Carroll La MD [address] [facility] [address] [place] [address] PCP - General FAMILY PRACTICE 12/14/23 documented as of this encounter
--- OUTSIDE RECORDS SUMMARY | 2024-11-15 18:30 | XMS_ITS | Encounter Summary ---
Author Organization [facility] Address [address] [facility] [place] [address] Care Team Providers Care Mine Utility Operator Name Role Phone Clemencia Collado MD Unavailable Devaughn Manuel MD Primary Care Provider + Melissa Doss DO Primary Care Provider [phone] Carroll La MD Primary Care Provider [phone] Reason for Visit * Reason Onset Date Comments MEDICATION REFILL 04/05/2021 Encounter Details Date Type Department Care Team (Late st Contact Info) Description 04/05/2021 Refill [facility] [address] [place] [address], [place] [phone] Jose Stewart MD [address] [place] [address] [place] [address] MEDICATION REFILL Social History Tobacco Use Types [...] Assessment Author No 05/28/2020 9:29 AM CDT Sa abdirizak Jon APRN-JOSE MANUEL * Is person blind or have serious difficulty seeing? Answer Date of Assessment Author No 05/28/2020 9:29 AM CDT Sa abdirizak Jon APRN-JOSE MANUEL * Does person have serious difficulty walking/climbing stairs? Answer Date of Assessment Author No 05/28/2020 9:29 AM CDT Sa abdirizak Jon APRN-JOSE MANUEL * Does person have difficulty dressing/bathing? Answer Date of Assessment Author No 05/28/2020 9:29 AM CDT Sa abdirizak Jon APRN-CHIP MIXER * Does person have difficulty doing errands alone? Answer Date of Assessment Author No 05/28/2020 9:29 AM CDT Sa abdirizak Jon APRN-CHIP MIXER documented as of this encounter Mental Status * Does person have difficulty concentrating/remembering/making decisions? Answer Entry Date Author No 05/28/2020 9:29 AM CDT Sa abdirizak Jon APRN-JOSE MANUEL documented in this encounter Plan of Treatment Upcoming Encounters Date Type Department Care Team (Late st Contact Info) Description 12/30/2024 10:20 AM EXHIBITS MANAGER Office Visit [facility] Neurosciences [address] [facility] [address] [place] [address] Yosi Jimenez MD [address] [facility] [address] [place] [address] documented as of this encounter Visit Diagnoses Diagnosis Cerebral aneurysm (HCC) Cerebral aneurysm, nonruptured documented in this encounter Care Teams Mine Utility Operator Relationship Specialty Start Date End Date Devaughn Manuel MD [address] [place] [address] PCP - General Internal Medicine 02/26/21 11/10/21 Melissa Doss DO [facility] [place] [address] PCP - General 11/11/21 04/29/24 Carroll La MD [address] [facility] [address] [address] PCP - General Family Medicine 04/30/24 Clemencia Collado MD [address] OF NEUROLOGY [place], [place] Resident Student Resident 06/10/20 documented as of this encounter
--- OUTSIDE RECORDS SUMMARY | 2024-11-15 18:30 | XMS_ITS | Encounter Summary ---
Author Organization [facility] Address [address] [place] [address] Care Team Providers Care Approver Name Role Phone Melissa Doss DO Primary Care Provider [phone] Devaughn Manuel MD Primary Care Provider [phone] Melissa Doss DO Primary Care Provider [phone] Melissa Doss DO Primary Care Provider [phone] None, Provider Primary Care Provider Carroll Yang MD Primary Care Provider [phone] Encounter Details Date Type Department Care Team (Late st Contact Info) Description 06/26/2020 [employer] Message Enc [facility] Medical Group Family Medicine - [place] [address] [facility], [address] [place] [address] Melissa Doss DO [address] [place] [address] RE: Other Social History Tobacco Use Types Packs/Day Years [...] Sex Assigned at Female 03/21/2024 5:01 PM DRAWING IN MACHINE TENDER Legal Sex Female 10:42 PM CDT [...] Assessment Author Status No 01/01/2020 2:43 PM DRAWING IN MACHINE TENDER Activ e * RETIRED Are you blind or do you have serious difficulty seeing, even when wearing glasses? Answer Date of Assessment Author Status No 01/01/2020 2:43 PM DRAWING IN MACHINE TENDER Activ e * Do you have serious difficulty walking or climbing stairs? Answer Date of Assessment Author Status No 01/01/2020 2:43 PM DRAWING IN MACHINE TENDER Emma Mendez RN Active * Do you [...] Rule Out 02/18/2021 02/18/2021 02/19/2021 1:01 PM DRAWING IN MACHINE TENDER COVID-19 Confirmed 02/18/2021 02/18/2021 12:32 AM DRAWING IN MACHINE TENDER COVID-19 Rule Out 11/15/2021 11/15/2021 11/16/2021 11:55 PM CDT Assessment Noted Time PHQ-9 Depression Total Score: 1 06/25/19 11:11 AM CDT documented as of this encounter Care Teams Approver Relationship Specialty Start Date End Date Melissa Doss DO [facility] [place] [address] PCP - General FAMILY PRACTICE 04/22/20 01/15/21 Devaughn Manuel MD [address] [place] [address] PCP - General INTERNAL MEDICINE 01/16/21 11/09/21 Melissa Doss DO [address] [place] [address] PCP - General FAMILY PRACTICE 11/10/21 07/15/22 Melissa Doss DO [address] [place] [address] PCP - General FAMILY PRACTICE 01/16/23 01/19/23 None, MD [place] PCP - General UNKNOWN PHYSICIAN SPECIALTY 02/19/23 12/13/23 Carroll La MD [address] [place] [phone] PCP - General FAMILY PRACTICE 12/14/23 documented as of this encounter
--- OUTSIDE RECORDS SUMMARY | 2024-11-15 18:30 | XMS_ITS | Encounter Summary ---
Author Organization [facility] Health Address [address] [place] [address] Care Team Providers Care Drivers License Examiner Name Role Phone Melissa Doss DO Primary Care Provider [phone] Sudhakar Sloan RETAIL SALES VITAMIN CONSULTANT-AXLE BEARING POLISHER Primary Care Provider Bethany vailable Clemencia Collado MD Unavailable [phone] Melissa Doss DO Unavailable [phone] Devaughn Manuel MD Primary Care Provider + Melissa Doss DO Primary Care Provider [phone] Carroll La MD Primary Care Provider [phone] Reason for Visit * Reason Onset Date Comments MEDICATION REFILL 05/23/2020 Encounter Details Date Type Department Care Team (Late st Contact Info) Description 05/23/2020 [facility] [address] [place] [address] Melissa Doss DO [address] [place] [address] MEDICATION REFILL Social History Tobacco [...] st Contact Info) Description 12/30/2024 10:20 AM SALES REPRESENTATIVE PRINTING SUPPLIES Office Visit [facility] Neurosciences [address] [facility] [address] [place] [address] Yosi Jimenez MD [address] [facility] 500 [place] [address] documented as of this encounter Visit Diagnoses Not on filedocumented in this encounter Care Teams Drivers License Examiner Relationship Specialty Start Date End Date Melissa Doss DO [address] [place] [address] PCP - General Family Medicine 05/01/20 05/27/20 Sudhakar Sloan, RETAIL SALES VITAMIN CONSULTANT-AXLE BEARING POLISHER [address] [place] [address] PCP - General 05/28/20 02/25/21 Melissa Doss DO [address] [place] [address] PCP - Attributed-[employer] [place] 03/23/20 08/11/20 Devaughn Manuel MD [address] [place] [address] PCP - General Internal Medicine 02/26/21 11/10/21 Melissa Doss DO [address] [place] [address] PCP - General 11/11/21 04/29/24 Carroll La MD [address] [facility] [address] [place] [place] [phone] PCP - General Family Medicine 04/30/24 Clemencia Collado MD [address] OF NEUROLOGY [place], [place] Resident Student Resident 06/10/20 documented as of this encounter
--- OUTSIDE RECORDS SUMMARY | 2024-11-15 18:30 | XMS_ITS | Encounter Summary ---
Author Organization [facility] Address [address] [facility] [place] [address] Care Team Providers Care Security Operations Manager Name Role Phone Sudhakar Sloan APRN-ATHLETICS TEACHER Primary Care Provider Bethany vailable Clemencia Collado MD Unavailable Melissa Doss DO Unavailable [phone] Devaughn Manuel MD Primary Care Provider + Melissa Doss DO Primary Care Provider [phone] Carroll La MD Primary Care Provider [phone] Reason for Visit * Reason Onset Date Comments MEDICATION REFILL 06/29/2020 Encounter Details Date Type Department Care Team (Late st Contact Info) Description 06/29/2020 Refill [facility] General Internal Medicine [address] [facility] [place] [address] Sudhakar Sloan, DARLINE-ATHLETICS TEACHER No information available MEDICATION REFILL Social History Tobacco Use Types [...] 05/28/2020 9:29 AM CDT Sa abdirizak Jon APRN-CNP * Is person blind or have serious [...] APRN-JOSE MANUEL * Does person have difficulty doing errands alone? Answer Date of Assessment Author No 05/28/2020 9:29 AM CDT Sa abdirizak Jon APRN-JOSE MANUEL documented as of this encounter Mental Status * Does person have difficulty concentrating/remembering/making decisions? Answer Entry Date Author No 05/28/2020 9:29 AM CDT Sa abdirizak Jon APRN-JOSE MANUEL documented in this encounter Plan of Treatment Upcoming Encounters Date Type Department Care Team (Late st Contact Info) Description 12/30/2024 10:20 AM PAINT SPRAYER SANDBLASTER Office Visit [facility] Neurosciences [address] [facility] [address] [place] [address] Yosi Jimenez MD [address] [facility] [address] [place] [address] documented as of this encounter Visit Diagnoses Not on filedocumented in this encounter Care Teams Security Operations Manager Relationship Specialty Start Date End Date Sudhakar Sloan APRN-CNP PCP - General 05/28/20 02/25/21 Melissa Doss DO [address] [place] [address] PCP - Attributed-[employer] [place] 03/23/20 08/11/20 Devaughn Manuel MD [address] [place] [address] PCP - General Internal Medicine 02/26/21 11/10/21 Melissa Doss DO [address] [place] [address] PCP - General 11/11/21 04/29/24 Carroll La MD [address] [facility] [address] [address] PCP - General Family Medicine 04/30/24 Clemencia Collado MD [address] OF NEUROLOGY [place], [place] Resident Student Resident 06/10/20 documented as of this encounter
--- OUTSIDE RECORDS SUMMARY | 2024-11-15 18:30 | XMS_ITS | Encounter Summary ---
Author Organization [facility] Address [address] [place] [address] Care Team Providers Care Insurance Professional Name Role Phone Clemencia Collado MD Unavailable [phone] Devaughn Manuel MD Primary Care Provider + Melissa Doss DO Primary Care Provider [phone] Carroll La MD Primary Care Provider [phone] Reason for Visit * Reason Onset Date Comments MEDICATION REFILL 10/25/2021 Encounter Details Date Type Department Care Team (Late st Contact Info) Description 10/25/2021 Refill [facility] [address] [facility], [place] [id number] Mikhail Fink APRN-JOSE MANUEL [facility] [place] [address] MEDICATION REFILL Social History Tobacco [...] 05/28/2020 9:29 AM CDT Danay, Sa abdirizak, MAGNETIC PROSPECTOR-PROCUREMENT ASSISTANT * Is person blind or have serious difficulty seeing? Answer Date of Assessment Author No 05/28/2020 9:29 AM CDT Danay, Sa abdirizak, MAGNETIC PROSPECTOR-PROCUREMENT ASSISTANT * Does person have serious difficulty walking/climbing stairs? Answer Date of Assessment Author No 05/28/2020 9:29 AM CDT Danay, Sa abdirizak, MAGNETIC PROSPECTOR-PROCUREMENT ASSISTANT * Does person have difficulty dressing/bathing? Answer Date of Assessment Author No 05/28/2020 9:29 AM CDT Danay, Sa abdirizak, MAGNETIC PROSPECTOR-PROCUREMENT ASSISTANT * Does person have difficulty doing errands alone? Answer Date of Assessment Author No 05/28/2020 9:29 AM CDT Danay, Sa manturiah, MAGNETIC PROSPECTOR-PROCUREMENT ASSISTANT documented as of this encounter Mental Status * Does person have difficulty concentrating/remembering/making decisions? Answer Entry Date Author No 05/28/2020 9:29 AM CDT Danay Sa abdirizak, MAGNETIC PROSPECTOR-PROCUREMENT ASSISTANT documented in this encounter Plan of Treatment Upcoming Encounters Date Type Department Care Team (Late st Contact Info) Description 12/30/2024 10:20 AM ASSEMBLER DECK AND HULL Office Visit [facility] Neurosciences [address] [facility] [address] [place] [address] Yosi Jimenez MD [address] [facility] 500 [place] [address] documented as of this encounter Visit Diagnoses Diagnosis Migraine without aura and without status migrainosus, not intractable Migraine without aura, without mention of intractable migraine without mention of status migrainosus documented in this encounter Care Teams Insurance Professional Relationship Specialty Start Date End Date Devaughn Manuel MD [address] [place] [address] PCP - General Internal Medicine 02/26/21 11/10/21 Melissa Doss DO [address] [place] [address] PCP - General 11/11/21 04/29/24 Carroll La MD [address] [address] PCP - General Family Medicine 04/30/24 Clemencia Collado MD [address] OF NEUROLOGY [place], [place] Resident Student Resident 06/10/20 documented as of this encounter
--- OUTSIDE RECORDS SUMMARY | 2024-11-15 18:30 | XMS_ITS | Encounter Summary ---
Author Organization [facility] Address [address] [place] [address] Care Team Providers Care Aircraft Instrument Mechanic Name Role Phone Melissa Doss DO Primary Care Provider [phone] Devaughn Manuel MD Primary Care Provider [phone] Melissa Doss DO Primary Care Provider [phone] Melissa Doss DO Primary Care Provider [phone] None, Provider Primary Care Provider Carroll Yang MD Primary Care Provider [phone] Encounter Details Date Type Department Care Team (Late st Contact Info) Description 07/12/2020 Ingenict Message Enc [facility] Family Medicine - [place] [address], [address] [place] [address] Melissa Doss DO [address] [place] [address] RE: Medication Questions Social History Tobacco Use Types [...] Sex Assigned at Female 03/21/2024 5:01 PM PREPARATION PLANT REPAIRER Legal Sex Female 10:42 PM CDT Gender [...] Assessment Author Status No 01/01/2020 2:43 PM PREPARATION PLANT REPAIRER Activ e * RETIRED Are you blind or do you have serious difficulty seeing, even when wearing glasses? Answer Date of Assessment Author Status No 01/01/2020 2:43 PM PREPARATION PLANT REPAIRER Activ e * Do you have serious difficulty walking or climbing stairs? Answer Date of Assessment Author Status No 01/01/2020 2:43 PM PREPARATION PLANT REPAIRER Emma Mendez RN Active * Do you have difficulty dressing or bathing? Answer Date of Assessment Author Status No 01/01/2020 2:43 PM PREPARATION PLANT REPAIRER Emma Mendez RN Active * Because of a physical, mental, or emotional condition, do you have difficulty doing errands alone such as visiting a doctor's office or shopping? Answer Date of Assessment Author Status No 01/01/2020 2:43 PM PREPARATION PLANT REPAIRER Emma Mendez RN Active documented as of this encounter Mental Status * Because of a physical, mental, or emotional condition, do you have serious difficulty concentrating, remembering, or making decisions? Answer Entry Date Author Status No 01/01/2020 2:43 PM PREPARATION PLANT REPAIRER Emma Mendez RN Active documented in this encounter Progress Notes * Va Garrett MD - 07/13/2020 12:35 PM CDT I see she has appt with [facility] today, she may need flu/strep/covid swab but defer to him thanks documented in this encounter Plan of Treatment [...] Rule Out 02/18/2021 02/18/2021 02/19/2021 1:01 PM PREPARATION PLANT REPAIRER COVID-19 Confirmed 02/18/2021 02/18/2021 12:32 AM PREPARATION PLANT REPAIRER COVID-19 Rule Out 11/15/2021 11/15/2021 11/16/2021 11:55 PM CDT Assessment Noted Time PHQ-9 Depression Total Score: 1 06/25/19 11:11 AM CDT documented as of this encounter Care Teams Aircraft Instrument Mechanic Relationship Specialty Start Date End Date Melissa Doss DO [address] [place] [id number] PCP - General FAMILY PRACTICE 04/22/20 01/15/21 Devaughn Manuel MD [address] [place] [address] PCP - General INTERNAL MEDICINE 01/16/21 11/09/21 Melissa Doss DO [address] [place] [address] [phone] PCP - General FAMILY PRACTICE 11/10/21 07/15/22 Melissa Doss DO [address] [place] [address] [phone] PCP - General FAMILY PRACTICE 01/16/23 01/19/23 None, Provider, PCP - General UNKNOWN PHYSICIAN SPECIALTY 02/19/23 12/13/23 Carroll La MD [address] [place] [phone] PCP - General FAMILY PRACTICE 12/14/23 documented as of this encounter
--- OUTSIDE RECORDS SUMMARY | 2024-11-15 18:30 | XMS_ITS | Encounter Summary ---
Author Organization [facility] Address [facility] [place] [address] Care Team Providers Care Coding Compliance Specialist Name Role Phone Mesha Cuellar SOFTWARE MAINTENANCE ENGINEER-C Primary Care Provider [phone] Selam, Melissa DO Primary Care Provider [phone] Devaughn Manuel MD Primary Care Provider [phone] Selam, Melissa DO Primary Care Provider [phone] Selam, Melissa DO Primary Care Provider [phone] None, Provider Primary Care Provider Carroll Yang MD Primary Care Provider [phone] Encounter Details Date Type Department Care Team (Late st Contact Info) Description 02/21/2020 Telespreet Message [facility] [address] [place] [phone] Mesha Cuellar, SOFTWARE MAINTENANCE ENGINEER-C [address] [place] [address] RE: Test Results Social History Tobacco Use [...] Sex Assigned at Female 03/21/2024 5:01 PM PT SKILLED Legal Sex Female 10:42 PM CDT Gender Identity Female 05/10/2021 12:51 PM CDT Sexual Orientation Straight 11/10/2021 5: 43 AM CDT COVID-19 Exposure Response Date Recorded In the last month, have you been in contact with someone who was confirmed or suspected to have Coronavirus / COVID-19? No / Unsure 02/18/2020 4:02 AM PT SKILLED documented as of this encounter Functional Status * RETIRED Are you deaf or do you have serious difficulty hearing Answer Date of Assessment Author Status No 01/01/2020 2:43 PM PT SKILLED Activ e * RETIRED Are you blind or do you have serious difficulty seeing, even when wearing glasses? Answer Date of Assessment Author Status No 01/01/2020 2:43 PM PT SKILLED Activ e * Do you have serious [...] Rule Out 02/18/2021 02/18/2021 02/19/2021 1:01 PM PT SKILLED COVID-19 Confirmed 02/18/2021 02/18/2021 12:32 AM PT SKILLED COVID-19 Rule Out 11/15/2021 11/15/2021 11/16/2021 11:55 PM CDT documented as of this encounter Care Teams Coding Compliance Specialist Relationship Specialty Start Date End Date Mesha Cuellar, SOFTWARE MAINTENANCE ENGINEER-C PCP - General Nurse Practitioner Family 02/09/2004/21 Melissa Doss DO [address] [place] [phone] PCP - General FAMILY PRACTICE 04/22/20 01/15/21 Devaughn Manuel MD [address] [place] [phone] PCP - General INTERNAL MEDICINE 01/16/21 11/09/21 Melissa Doss DO [address] [place] [phone] PCP - General FAMILY PRACTICE 11/10/21 07/15/22 Melissa Doss DO [address] [place] [id number] PCP - General FAMILY PRACTICE 01/16/23 01/19/23 None, MD [place] PCP - General UNKNOWN PHYSICIAN SPECIALTY 02/19/23 1 Carroll La MD [address] [place] [phone] PCP - General FAMILY PRACTICE 12/14/23 documented as of this encounter
--- OUTSIDE RECORDS SUMMARY | 2024-11-15 18:30 | XMS_ITS | Encounter Summary ---
Author Organization [facility] Address [address] [place] [address] Care Team Providers Care Cotton Picking Machine Operator Name Role Phone Melissa Doss DO Primary Care Provider [phone] Devaughn Manuel MD Primary Care Provider [phone] SelamMelissa white DO Primary Care Provider [phone] Melissa Doss DO Primary Care Provider [phone] None, Provider Primary Care Provider Carroll Yang MD Primary Care Provider [phone] Encounter Details Date Type Department Care Team (Late st Contact Info) Description 06/29/2020 [place] Message Enc [facility] Family Medicine - [place] [address], [address] [place] [address] Melissa Doss DO [address] [place] [address] Other Social History Tobacco Use Types Packs/Day [...] Sex Assigned at Female 03/21/2024 5:01 PM BEAD FORMING MACHINE OPERATOR Legal Sex Female 10:42 PM CDT Gender [...] Assessment Author Status No 01/01/2020 2:43 PM BEAD FORMING MACHINE OPERATOR Activ e * RETIRED Are you blind or do you have serious difficulty seeing, even when wearing glasses? Answer Date of Assessment Author Status No 01/01/2020 2:43 PM BEAD FORMING MACHINE OPERATOR Activ e * Do you have serious difficulty walking or climbing stairs? Answer Date of Assessment Author Status No 01/01/2020 2:43 PM BEAD FORMING MACHINE OPERATOR Emma Mendez RN Active * Do you [...] Rule Out 02/18/2021 02/18/2021 02/19/2021 1:01 PM BEAD FORMING MACHINE OPERATOR COVID-19 Confirmed 02/18/2021 02/18/2021 12:32 AM BEAD FORMING MACHINE OPERATOR COVID-19 Rule Out 11/15/2021 11/15/2021 11/16/2021 11:55 PM CDT Assessment Noted Time PHQ-9 Depression Total Score: 1 06/25/19 11:11 AM CDT documented as of this encounter Care Teams Cotton Picking Machine Operator Relationship Specialty Start Date End Date Melissa Doss DO [address] [place] [address] PCP - General FAMILY PRACTICE 04/22/20 01/15/21 Devaughn Manuel MD [address] [place] [phone] PCP - General INTERNAL MEDICINE 01/16/21 11/09/21 Melissa Doss DO [facility] [place] [address] PCP - General FAMILY PRACTICE 11/10/21 07/15/22 Melissa Doss DO [address] [place] [phone] PCP - General FAMILY PRACTICE 01/16/23 01/19/23 Elizabeth, MD [place] PCP - General UNKNOWN PHYSICIAN SPECIALTY 02/19/23 12/13/23 Carroll La MD [address] [place] [phone] PCP - General FAMILY PRACTICE 12/14/23 documented as of this encounter
--- OUTSIDE RECORDS SUMMARY | 2024-11-15 18:30 | XMS_ITS | Clinical Summary ---
Author Organization [facility] [place] [address] [facility] Address [address] [place] [address] Care Team Providers Care School Lunch Manager Name Role Phone Carroll La MD Primary Care Provider [phone] Allergies Active Allergy Reactions Criticality Noted Date Comments Codeine Other (See comments) Low 05/09/2011 Confusion Medications carboxymethylcellu lose (REFRESH CELLUVISC) 1 % dropperette,gel daily 2 Active atorvastatin (LIPITOR) 40 mg tabletIndications: Hypercholesterolem ia Take 1 tablet (40 mg total) by mouth daily 30 tablet 3 2 Active topiramate (TOPAMAX) 100 mg tabletIndications: Migraine Prevention Take 1 tablet (100 mg total) by mouth daily 30 tablet 3 2 Active fluticasone propionate (FLONASE) 50 mcg/actuation nasal spray Administer 1 spray into each nostril daily Active sertraline (ZOLOFT) 50 mg tabletIndications: Generalized anxiety disorder Take 1 tablet (50 mg total) by mouth daily 7 tablet 3 Active ciprofloxacin (CILOXAN) 0.3 % ophthalmic solutionIndication s:Bacterial Conjunctivitis Administer 2 drops into both eyes every 4 (four) hours while awake Administer 1 drop, every 2 hours, while awake, for 2 days. Then 1 drop, every 4 hours, while awake, for the next 5 days. 5 mL 5 Active ketorolac (ACULAR) 0.5 % ophthalmic solution Administer 2 drops into both eyes every 6 (six) hours as needed for itching or irritation 5 mL 5 Active Active Problems Problem Noted Date Diagnosed Date Actinic keratosis 06/24/2021 Assessment & Plan (06/24/2021 1:39 PM CDT): Left forearm, left base of the neck. Both lesions treated with Histofreezer. Patient tolerated procedure well. I discussed with patient that if this procedure will not improve lesions after 4 weeks, call back for referral to Derm. Neck pain 05/27/2021 Assessment & Plan (06/24/2021 11:37 AM CDT): Persistent for 6 weeks. Pt couldn't tolerate prednisone pack presctibed 05/27 due to spiking BP. Will check xray and refer for PT. Assessment & Plan (05/27/2021 9:37 AM CDT): Given instructions on neck stretching. Start prednisone taper. Would also try heat 20-30 minutes every 2 - 3 hours. Mucous retention cyst of maxillary sinus 022 Assessment & Plan (05/27/2021 9:28 AM CDT): Has not started antibiotics yet because of insurance coverage. She start on cetirizine. Assessment & Plan (05/24/2021 2:29 PM CDT): Left side, 2.3 cm. Incidental finding on brain MRI in March. Increasing tenderness over last 3 months. Will try to treat with antibiotic and prednisone taper. Continue Flonase. Start Zyrtec 10 mg a day. If not better in 2-3 weeks call me back for referral to ENT. History of TIA (transient ischemic attack) 03/09 Assessment & Plan (05/25/2021 3:28 PM CDT): Stable on aspirin and atorvastatin Assessment & Plan (03/09/2021 11:25 AM BIOPSYCHOLOGIST): Stable on aspirin, clopidogrel, and atorvastatin. Generalized anxiety disorder 03/09/2021 Assessment & Plan (05/25/2021 3:28 PM CDT): Stable on buspirone and sertraline Assessment & Plan (03/09/2021 11:11 AM BIOPSYCHOLOGIST): Stable on buspirone and sertraline Non-seasonal allergic rhinitis 03/09/2021 Assessment & Plan (05/25/2021 3:29 PM CDT): Stable on Flonase Assessment & Plan (03/09/2021 11:14 AM BIOPSYCHOLOGIST): Stable on Flonase Other headache syndrome 03/09/2021 Assessment & Plan (03/09/2021 11:50 AM BIOPSYCHOLOGIST): Unclear etiology. Doubt related to retention cyst. Will increase topiramate to 100 mg once a day History of cerebral aneurysm 03/09/2021 Assessment & Plan (03/09/2021 11:26 AM BIOPSYCHOLOGIST): S/p stent. Continue clopidigrel. Follows with Dr. Kitchen at [facility]. Hypercholesterolemia 03/09/2021 Assessment & Plan (05/25/2021 3:28 PM CDT): Stable on atorvastatin Assessment & Plan (03/09/2021 11:29 AM BIOPSYCHOLOGIST): Stable on atorvastatin Eczema 03/09/2021 Assessment & Plan (06/24/2021 3:34 PM CDT): With periodic flare ups. Had it on face. Most recently on bilateral lower legs. Went to ER for that on 06/20. Responded well to triamcinolone cream. Continue as needed. Assessment & Plan (03/09/2021 11:41 AM BIOPSYCHOLOGIST): Will try triamcinolone cream twice a day Ingrown toenail of both feet 03/09/2021 Assessment & Plan (03/09/2021 11:47 AM BIOPSYCHOLOGIST): Will refer to podiatry Morbid obesity with BMI of 40.0-44.9, adult 02/20 Assessment & Plan (05/25/2021 3:29 PM CDT): BMI Follow-up includes: exercise counseling. Assessment & Plan (03/09/2021 11:48 AM BIOPSYCHOLOGIST): BMI Follow-up includes: exercise counseling. Migraine without aura and wi thout status migrainosus, not intractable 06/11/2020 Assessment & Plan (05/25/2021 3:29 PM CDT): Stable on topiramate Resolved Problems Problem Noted Date Diagnosed Date Resolved Date Intrinsic eczema 06/24/2021 06/24/2021 Migraine syndrome 04/20/2021 04/20/2021 Stage 2 chronic kidney disease 04/20/2021 04/20/2021 TIA (transient ischemic attack) 04/11/2021 04/20/2021 Morbid obesity with BMI of 40.0-44.9, adult 04/11/2021 04/20/2021 History of 2019 novel moore virus disease (COVID-19) 04/11/2021 07/27/2022 Borderline personality disorder in adult 04/11/2021 04/20/2021 Anxiety and depression 04/11/202104/20 History of migraine 04/11/2021 04/21/19 Viral upper respiratory infection 03/30/2021 04/20/2021 Assessment & Plan (03/30/2021 3:01 PM BIOPSYCHOLOGIST): Onset 2 weeks ago. Per patient tested negative for COVID and influenza at onset. Symptoms almost resolved. She has history of COVID infection over a month ago. Patient okay to return to work. Hyperglycemia 03/09/2021 05/01/2023 Assessment & Plan (03/09/2021 11:16 AM BIOPSYCHOLOGIST): Will plan to check a hemoglobin A1c COVID-19 03/04/2021 04/23/2021 Assessment & Plan (03/09/2021 11:26 AM BIOPSYCHOLOGIST): recovered Class 3 severe obesity due t o excess calories without serious comorbidity in adult 04/23/202005/2021 Mixed hyperlipidemia 04/23/2020 022 GERMÁN (generalized anxiety disorder) 04/22/2020 04/23/2021 Cerebral aneurysm 01/01/2020 04/23/2021 Encounters Date Type Department Care Team Description 10/23/2024 Results Follow-Up [facility] Emergency Department [address] [place] [address] Stroke Head WO Contrast 10/22/2024 9:20 PM CDT - 10/23/2024 1:52 AM CDT Emergency [facility] Emergency Department [address] [place] [address] Discharge Disposition: Left Against Medical Advice 08/27/2024 3:28 PM CDT - 08/27/2024 5:09 PM CDT Emergency [facility] Emergency Department [address] [place] [id number] Heat exhaustion, initial encounter (Primary Dx) Discharge Disposition: Discharge to home or self care from Last 3 Months Immunizations Immunization Administration Dates Next Due Influenza, Quadrivalent, Spl it, Preservative Free, Intramuscular 11/10/2021,03/08/2021,12/03/2020,01/01,04/30/2015 Influenza, Unspecified 05/05/2023(Deferr ed: Patient decision),03/08/2021,04/30/2015 Pneumococcal Polysaccharide PPV23 04/30/2015 ZOSTER Recombinant 07/09/2021 Surgical History Surgery Date Site/Laterality Comments CEREBRAL ANGIOGRAM Medical History Medical History Date Comments Aneurysm of anterior cerebral artery Anxiety Depression Headache Allergic rhinitis Maxillary sinus cyst GERD (gastroesophageal reflux disease) 2012 Arthritis 2016 Migraines 2020 Stroke (HCC) 2015 Menstrual problem 2013 Family History Medical History Relation Name Comments Hearing loss Father Oneil Hypertension Father Oneil Obesity Father Oneil Alcohol abuse Father's Brother 1 Ever Learning disabilities Father's Brother 2 Ever dre Alcohol abuse Maternal Grandfather Danieldaniel COPD Maternal Grandfather Ermias Cancer Maternal Grandfather Ermias Alcohol abuse Maternal Grandmother Jerilyn Cancer Maternal Grandmother Jerilyn Miscarriages / Stillbirths Maternal Grandmother Jerilyn COPD Mother Yenifer Cancer Mother Yenifer Depression Mother Yenifer Diabetes Mother Yenifer Heart failure Mother Yenifer Kidney disease Mother Yenifer Obesity Mother Yenifer Vision loss Mother Yenifer Alcohol abuse Mother's Brother Felice Tate Alcohol abuse Mother's Sister 1 Kia Cancer Mother's Sister 2 Katiana Relation Name Status Comments Father Oneil Alive Father's Brother 1 Ever Father's Brother 2 Ever dre Maternal Grandfather Ermias Maternal Grandmother Jerilyn Mother Yenifer Alive Mother's Brother Felice Tate Mother's Sister 1 Kia Mother's Sister 2 Katiana Social History Tobacco Use Types Packs/Day Years Used Date Smoking Tobacco: Former Cigarettes 0.8 8.2 0 10/04/2010 - 12/14/2018 Smokeless Tobacco: Never Tobacco Cessation:Counseling Given: Not Answered Comments:Will never smoke again AUDIT-C Answer Date Recorded Q1: How often do you have a drink containing alc ohol? Never 06/24/2021 Average Number of Drinks Not on file 022 Q3: How often do you have si x or more drinks on one occasion? Never 06/24/2021 PHQ-2 Answer Date Recorded PHQ-2 Total Score (If total score is 3 or more points, staff should administer the PHQ-9) 0 05/27/2021 Personal Safety Answer Date Recorded Have you ever been in or are you currently in a harmful physical or emotional relationship or is someone making you feel afraid or unsafe? Denies 10/22/2024 Comments No Sex and Gender Information Value Date Recorded Sex Assigned at Not on file Legal Sex Female 10:23 PM BIOPSYCHOLOGIST Gender Identity Female 03/29/2021 1:12 PM BIOPSYCHOLOGIST Sexual Orientation Straight 03/29/2021 1: 12 PM BIOPSYCHOLOGIST Obstetrics History Last Filed Vital Signs Vital Sign Reading Time Taken Comments Blood Pressure 120/73 10/22/2024 9:22 PM CDT Pulse 87 10/22/2024 9:22 PM CDT Temperature 36.3 C (97.4 F) 08/27/2024 2:29 PM CDT Respiratory Rate 18 10/22/2024 9:22 PM CDT Oxygen Saturation 98% 10/22/2024 9:22 PM CDT Inhaled Oxygen Concentration - - Weight 113.6 kg (250 lb 8 oz) 10/22/2024 9:22 PM CDT Height 160 cm (5' 2.99) 10/22/2024 9:22 PM CDT Body Mass Index 44.39 10/22/2024 9:22 PM CDT Plan of Treatment Health Maintenance Due Date Last Done Comments Colon Cancer Screening-Colonoscopy 1971 Hepatitis C Screening 1971 DTaP/Tdap/Td Vaccine (1 - Tdap) 05/11/1982 Hepatitis B Screening 05/11/1989 Regular Well Visit/Exam 18-64 05/11/1989 Zoster Vaccine (2 of 2) 09/03/2021 07/09/2021 Depression Screening 05/27/2022 05/27/2021, 03/09/19 Cervical Cancer Screening 01/21/2023 01/21/2022 Covid-19 Vaccine ( season) 2024 05/13/2021, 11/26/2020, 10/29/2020 Influenza Vaccine (#1) 2024 , 03/08/2021, 03/08/2021, Additional history exists Breast Cancer Screening-Mammogram 12/13/2024 12/14/2023, 12/14/2023, 01/27/2022 Pneumococcal vaccine <65 Aged Out 04/30/2015 No longer eligible based on patient's age to complete this topic Medical Devices Implanted Type Area Physical Instructor Device Identifier Shelf Expiration Date Model / Serial / Lot Stent-04/26/2020 Implanted:Qty: 1 on 04/26/2020 by Jose Stewart MD Stent Left: Brain Description:Trever stent Procedures Procedure Name Priority Date/Time Associated Diagnosis Comments ECG 12-LEAD STAT 10/22/2024 10:21 PM CDT POCT GLUCOSE DEVICE Routine 10/22/2024 9 :[address] STROKE PROTOCOL WO CONTRAST Critical/Life-T hreatening 10/22/2024 9:29 PM CDT POCT PROTHROMBIN TIME, WHOLE BLOOD Routine 10/22/2024 9:27 PM CDT EGFR STAT 10/22/2024 9:27 PM CDT DIFFERENTIAL AUTO STAT 10/22/2024 9:2 7 PM CDT TROPONIN I HIGH-SENSITIVITY SERIES (BASELINE, 2HR, 4HR, 6HR) STAT 10/22/2024 9:27 PM CDT APTT STAT 10/22/2024 9:27 PM CDT COMPREHENSIVE METABOLIC PANEL STAT 10/22/2024 9:27 PM CDT CBC WITH AUTO DIFFERENTIAL STAT 10/22/2024 9:27 PM CDT URINALYSIS AND REFLEX TO MICROSCOPIC AND CULTURE STAT 08/27/2024 2:47 PM CDT ECG 12-LEAD STAT 08/27/2024 2:39 PM CDT EGFR STAT 08/27/2024 2:36 PM CDT DIFFERENTIAL AUTO STAT 08/27/2024 2:3 6 PM CDT COMPREHENSIVE METABOLIC PANEL STAT 08/27/2024 2:36 PM CDT CBC WITH AUTO DIFFERENTIAL STAT 08/27/2024 2:36 PM CDT from Last 3 Months Results * ECG 12-LEAD (10/22/2024 10:21 PM CDT) Narrative [facility] - 10/22/2024 10:21 PM CDT Marc Tejada MD 10/22/2024 10:37 PM ECG 12 lead Date/Time: 10/22/2024 10:21 PM Performed by: Marc Tejada MD Authorized by: Enrique Atkinson MD Rate: ECG rate assessment comment: Rate 87, normal sinus rhythm, normal axis, normal intervals, low voltage EKG, nonspecific ST changes us Enrique Atkinson MD ECG ORDERABLES Final Res ult [facility] * POCT glucose (10/22/2024 9:30 PM CDT) Glucose, POC 118 70 - 199 mg/dL Blood 10/22/2024 9:30 PM CDT 10/22/2024 9:30 PM CDT us Notinfile Unknown LAB POCT ORDERABLES - DEVICE F inal Result Performing Organization Address City/[facility]/ZIP Co de Phone Number LYNN RICK [facility] [place] [address] * CT Stroke Head WO Contrast (10/22/2024 9:29 PM CDT) Anatomical Region Laterality Modality Head N/A Computed Tomogra phy 10/22/2024 9:37 PM CDT Impressions 10/23/2024 2:40 PM CDT No acute intracranial hemorrhage or mass effect The Non Critical results were discussed with Dr. Ramírez by Dr. Teo Lara M.D. on 10/22/2024 9:35 PM. Dictated by: Teo Lara M.D. The radiology attending physician has personally reviewed this study, and had reviewed and/or edited this written report and agrees with it. Electronically signed by: Aly Segovia M.D. Narrative 10/23/2024 2:40 PM CDT EXAMINATION: CT head without contrast HISTORY: New onset left-sided numbness, weakness, slurred speech. TECHNIQUE: CT of the head was performed with images acquired from skull base to vertex without intravenous contrast. COMPARISON: None Available. FINDINGS: There is no acute intracranial hemorrhage. Ventricles are of normal size and morphology. No mass effect or midline shift is present. The tan-white matter differentiation is normal. The visualized portions of the orbits are normal. The visualized portions of the mastoids are normal. Air-fluid levels within the sphenoid sinuses. No fractures are identified. Procedure Note Aly Segovia MD - 10/23/2024 EXAMINATION: CT head without contrast HISTORY: New onset left-sided numbness, weakness, slurred speech. TECHNIQUE: CT of the head was performed with images acquired from skull base to vertex without intravenous contrast. COMPARISON: None Available. FINDINGS: There is no acute intracranial hemorrhage. Ventricles are of normal size and morphology. No mass effect or midline shift is present. The tan-white matter differentiation is normal. The visualized portions of the orbits are normal. The visualized portions of the mastoids are normal. Air-fluid levels within the sphenoid sinuses. No fractures are identified. IMPRESSION: No acute intracranial hemorrhage or mass effect The Non Critical results were discussed with Dr. Ramírez by Dr. Teo Lara M.D. on 10/22/2024 9:35 PM. Dictated by: Teo Lara M.D. The radiology attending physician has personally reviewed this study, and had reviewed and/or edited this written report and agrees with it. Electronically signed by: Aly Segovia M.D. Enrique Atkinson MD IMG CT PROCEDURES Final R esult * Troponin I high-sensitivity series (baseline, 2hr, 4hr, 6hr) (10/22/2024 9:27 PM CDT) Trop I hs <4 <=17 ng/L Comment: Interpretive Data For further hscTnI resources including the diagnostic algorithm and an aid in interpretation, copy and paste this link: [email or web address]://bjhlab.testcatalog.org/show/[email or web address] Current Interpretive Data last revised 2019. Blood 10/22/2024 9:27 PM CDT 10/22/2024 9:52 PM CDT Enrique Atkinson MD LAB BLOOD ORDERABLES Ngoc hurtado Result [facility] [place] [address] * (ABNORMAL) eGFR (10/22/2024 9:27 PM CDT) Pathologist [facility] eGFR 59(L) >=60 mL/min/1. 73 m2 Comment: Interpretive Data Reference Interval Normal >/= 90 mL/min/1.73m2 Mildly decreased* 60 - 89 mL/min/1.73m2 Mildly to moderately decreased 45 - 59 mL/min/1.73m2 Moderately to severely decreased 30 - 44 mL/min/1.73m2 Severely decreased 15 - 29 mL/min/1.73m2 Kidney Failure < 15 mL/min/1.73m2 *Relative to young adult level Estimated glomerular filtration rate is determined by the 2020 CKD-EPI equation recommended by the National Kidney Foundation (A Unifying Approach to GFR Estimation: Recommendations of the NKF-ASK Task Force on Reassessing the Inclusion of Race in Diagnosing Kidney Disease, JASN 2020). The CKD-EPI equation should not be used for patients with unstable renal function and has not been validated in children and those over 70. Current interpretive data was last reviewed 2020. Blood 10/22/2024 9:27 PM CDT 10/22/2024 9:32 PM CDT us Enrique Atkinson MD LAB BLOOD ORDERABLES Ngoc hurtado Result [facility] [address] [facility] [place] [address] * Differential, auto (10/22/2024 9:27 PM CDT) Pathologist [facility] Neutrophil abs 6.45 1.50 - 6.50 K/cumm Imm gran abs 0.03 0.00 - 0.10 K/cumm [facility] Lymphocyte abs 1.77 0.80 - 3.30 K/cumm [facility] Monocyte abs 0.69 0.20 - 0.80 K/cumm [facility] Eosinophil abs 0.17 0.00 - 0.50 K/cumm [facility] Basophil abs 0.05 0.00 - 0.10 K/cumm [facility] Neutrophil pct 70.5 % [facility] Comment: Interpretive Data Percent cell count reference ranges are not reported, since discordance with absolute values may lead to misinterpretation of CBC data. Current Interpretive Data was last revised on 2017. Imm gran pct 0.3 % [facility] Comment: Interpretive Data Percent cell count reference ranges are not reported, since discordance with absolute values may lead to misinterpretation of CBC data. Current Interpretive Data was last revised on 2017. Lymphocyte pct 19.3 % [facility] Comment: Interpretive Data Percent cell count reference ranges are not reported, since discordance with absolute values may lead to misinterpretation of CBC data. Current Interpretive Data was last revised on 2017. Monocyte pct 7.5 % [facility] Comment: Interpretive Data Percent cell count reference ranges are not reported, since discordance with absolute values may lead to misinterpretation of CBC data. Current Interpretive Data was last revised on 2017. Eosinophil pct 1.9 % [facility] Comment: Interpretive Data Percent cell count reference ranges are not reported, since discordance with absolute values may lead to misinterpretation of CBC data. Current Interpretive Data was last revised on 2017. Basophil pct 0.5 % [facility] Comment: Interpretive Data Percent cell count reference ranges are not reported, since discordance with absolute values may lead to misinterpretation of CBC data. Current Interpretive Data was last revised on 2017. Blood 10/22/2024 9:27 PM CDT 10/22/2024 9:32 PM CDT us Enrique Atkinson MD LAB BLOOD ORDERABLES Ngoc genesis Result [facility] [place] [address] * POCT prothrombin time, whole blood (10/22/2024 9:27 PM CDT) PT, POC 12.2 10.6 - 13.5 sec INR, bld, POC 1.0 0.9 - 1.2 [facility] Blood 10/22/2024 9:27 PM CDT 10/22/2024 9:27 PM CDT us Notinfile Unknown LAB POCT ORDERABLES - DEVICE F inal Result Performing Organization Address City/[facility]/ZIP Co de Phone Number [facility] [place] [address] * CBC with auto differential (10/22/2024 9:27 PM CDT) [facility] WBC 9.16 3.80 - 9.90 K/cumm Comment:Code Blue Specimen C ode Blue Specimen Hgb 13.1 11.9 - 15.5 g/dL [facility] Hct 40.2 35.6 - 45.5 % [facility] Plt 266 150 - 400 K/cumm [facility] MPV 10.6 9.1 - 12.3 fL [facility] RBC 4.64 3.90 - 5.20 M/cumm [facility] MCV 86.6 81.3 - 96.4 fL [facility] MCH 28.2 27.1 - 33.3 pg [facility] MCHC 32.6 32.3 - 35.7 g/dL [facility] RDW CV 14.6 11.1 - 14.9 % [facility] RDW SD 45.9 35.7 - 48.1 fL [facility] NRBC abs 0.00 0.00 - 0.01 K/cumm [facility] Blood Venous blood specimen / Unknown 10/22/2024 9:27 PM CDT 10/22/2024 9:32 PM CDT Narrative [facility] - 10/22/2024 9:41 PM CDT Potential Stroke Patient Enrique Atkinson MD LAB BLOOD ORDERABLES Ngoc l Result [facility] [place] [address] * aPTT (10/22/2024 9:27 PM CDT) aPTT 31 26 - 38 sec Comment: Code Blue Specimen Interpretive Data Heparin therapeutic range: 66.0 - 100.0 seconds. Range based on correlation with therapeutic heparin activity range of 0.3 - 0.7 Units/mL. Current interpretive data was last revised on 2022. Blood Venous blood specimen / Unknown 10/22/2024 9:27 PM CDT 10/22/2024 9:32 PM CDT Narrative [facility] - 10/22/2024 9:49 PM CDT Potential stroke patient. us Enrique Atkinson MD LAB BLOOD ORDERABLES Ngoc l Result [facility] [place] [address] * (ABNORMAL) Comprehensive metabolic panel (10/22/2024 9:27 PM CDT) Sodium 141 135 - 145 mmol/L Comment:Code Blue Specimen Potassium, pl 3.9 3.3 - 4.9 mmol/L [facility] Comment:Code Blue Specimen Chloride 105 97 - 110 mmol/L [facility] Comment:Code Blue Specimen CO2 26 22 - 32 mmol/L [facility] Comment:Code Blue Specimen Anion gap 10 2 - 15 mmol/L [facility] Comment:Code Blue Specimen BUN 16 6 - 25 mg/dL [facility] Comment:Code Blue Specimen Creatinine 1.11(H) 0.60 - 1.10 mg/dL [facility] Comment:Code Blue Specimen Glucose 125 70 - 199 mg/dL [facility] Comment: [facility] Specimen Interpretive Data Fasting glucose >/= 126 mg/dl is diagnostic for diabetes. Fasting is defined as no caloric intake for at least 8 hours. Fasting glucose between 100 mg/dl to 125 mg/dl is diagnostic of prediabetes. In a patient with classic symptoms of hyperglycemia or hyperglycemic crisis, a random glucose >/= 200 mg/dl is diagnostic for diabetes. In the absence of unequivocal hyperglycemia, results should be confirmed by repeat testing. The classification and Diagnosis of Diabetes Diabetes Care 202; 46: S19-S40. Current interpretive data was last revised 2022. Calcium 9.3 8.5 - 10.3 mg/dL [facility] Comment:Code Blue Specimen Bilirubin, total 0.2 0.1 - 1.2 mg/dL [facility] Comment:Code Blue Specimen Protein, pl 7.5 6.5 - 8.5 g/dL [facility] Comment:Code Blue Specimen Albumin 4.0 3.5 - 5.0 g/dL [facility] Comment:Code Blue Specimen Alk phos 148(H) 40 - 130 Units/L [facility] Comment:Code Blue Specimen ALT 19 7 - 45 Units/L [facility] Comment:Code Blue Specimen AST 24 10 - 45 Units/L [facility] Comment:Code Blue Specimen Blood Venous blood specimen / Unknown 10/22/2024 9:27 PM CDT 10/22/2024 9:32 PM CDT Narrative [facility] - 10/22/2024 10:01 PM CDT Potential Stroke Patient Enrique Atkinson MD LAB BLOOD ORDERABLES Ngoc l Result [facility] [place] [address] * Urinalysis reflex to microscopic and culture Urine (08/27/2024 2:47 PM CDT) Color, ur Yellow Yellow Comment:Testing performed by : [address] [address] Clarity, ur Clear Clear LYNN Comment:Testing performed by : [address] [address] Specific gravity, ur 1.022 1.003 - 1.030 LYNN Comment:Testing performed by : [address] [address] pH, urine 5.5 LYNN Comment: Interpretive Data U rine pH is affected by diet, medications, systemic acid-base disturbances, and renal tubular function. pH may affect urinary stone formation. For example, urine pH below 6.0 may help reduce the tendency for calcium phosphate stones and pH greater than 6.0 may reduce the tendency for uric acid stone formation. Source: [facility] Current Interpretive Data was last revised on 2017 Testing performed by: [facility], [address] [place] [address], [place]., [address] Protein, ur ql Negative Negative LYNN Comment:Testing performed by : [facility], [address] [place] [address], [place]., [address] Glucose, ur ql Negative Negative LYNN Comment:Testing performed by : [address], [place]., [address] Ketones, ur Negative Negative LYNN Comment:Testing performed by : [address], [place]., [address] Bilirubin, ur Negative Negative LYNN Comment:Testing performed by : [address], [place]., [address] Blood, ur Negative Negative LYNN Comment:Testing performed by : [address], [place]., [address] Urobilinogen, ur <2.0 <2.0 mg/dL LYNN Comment:Testing performed by : [address], [place]., [address] Nitrite, ur Negative Negative LYNN Comment:Testing performed by : [address], [place]., [address] Leukocyte esterase, ur Negative Negative LYNN Comment:Testing performed by : [address], [place]., [address] UA reflex comment Reflex conditions for microscopic UA and culture not met. LYNN Comment:Testing performed by : [address] [address] Urine 08/27/2024 2:47 PM CDT 08/27/2024 2:54 PM CDT us Arielle Villegas NP LAB MICROBIOLOGY - GENERA L ORDERABLES Final Result LYNN FUENTES [address] [facility] Department of Laboratories [place], [place] [id number] * ECG 12 lead (08/27/2024 2:39 PM CDT) Ventricular Rate EKG/Min 89 BPM [facility] Atrial Rate 89 BPM [facility] NE-Interval (MSEC) 156 ms [facility] QRS-Interval (MSEC) 78 ms [facility] QT-Interval (MSEC) 360 ms [facility] QTc 438 ms [facility] P [place] 29 degrees [facility] R [place] 24 degrees [facility] T [place] 0 degrees [facility] Diagnosis Normal sinus rhythm Possible Anterior infarct (cited on or before 11-APR-2021) Abnormal ECG When compared with ECG of 11-APR-2021 16:24, No significant change was found Confirmed by BRIONNA PERSAUD M.D. ([id number]) on 08/27/2024 6:32:46 PM [facility] 08/27/2024 2:39 PM CDT 08/27/2024 6:32 PM CDT us Arielle Villegas NP ECG ORDERABLES Final Res ult [facility] [place] * eGFR (08/27/2024 2:36 PM CDT) eGFR 67 >=60 mL/min/1. 73 m2 Comment: Interpretive Data Reference Interval Normal >/= 90 mL/min/1.73m2 Mildly decreased* 60 - 89 mL/min/1.73m2 Mildly to moderately decreased 45 - 59 mL/min/1.73m2 Moderately to severely decreased 30 - 44 mL/min/1.73m2 Severely decreased 15 - 29 mL/min/1.73m2 Kidney Failure < 15 mL/min/1.73m2 *Relative to young adult level Estimated glomerular filtration rate is determined by the 2020 CKD-EPI equation recommended by the National Kidney Foundation (A Unifying Approach to GFR Estimation: Recommendations of the NKF-ASK Task Force on Reassessing the Inclusion of Race in Diagnosing Kidney Disease, JASN 2020). The CKD-EPI equation should not be used for patients with unstable renal function and has not been validated in children and those over 70. Current interpretive data was last reviewed 2020. Testing performed by: [facility], [address] [place] [address]., [address] Blood 08/27/2024 2:36 PM CDT 08/27/2024 2:39 PM CDT Arielle Villegas [employer] LAB BLOOD ORDERABLES Ngoc hurtado Result [facility] [address] [facility] Department [place] [address] * Differential, auto (08/27/2024 2:36 PM CDT) Neutrophil abs 6.30 1.50 - 6.50 K/cumm Comment:Testing performed by : [address] [address] Imm gran abs 0.03 0.00 - 0.10 K/cumm LYNN Comment:Testing performed by : [address] [address] Lymphocyte abs 1.47 0.80 - 3.30 K/cumm LYNN Comment:Testing performed by : [address] [address] Monocyte abs 0.66 0.20 - 0.80 K/cumm LYNN Comment:Testing performed by : [address] [address] Eosinophil abs 0.14 0.00 - 0.50 K/cumm LYNN Comment:Testing performed by : [address] [address] Basophil abs 0.04 0.00 - 0.10 K/cumm LYNN Comment:Testing performed by : [address] [address] Neutrophil pct 73.0 % LYNN Comment: Interpretive Data Percent cell count reference ranges are not reported, since discordance with absolute values may lead to misinterpretation of CBC data. Current Interpretive Data was last revised on 2017. Testing performed by: [address] [address] Imm gran pct 0.3 % LYNN Comment: Interpretive Data Percent cell count reference ranges are not reported, since discordance with absolute values may lead to misinterpretation of CBC data. Current Interpretive Data was last revised on 2017. Testing performed by: [address] [address] Lymphocyte pct 17.0 % [facility] Comment: Interpretive Data Percent cell count reference ranges are not reported, since discordance with absolute values may lead to misinterpretation of CBC data. Current Interpretive Data was last revised on 2017. Testing performed by: [address] [address] Monocyte pct 7.6 % [facility] Comment: Interpretive Data Percent cell count reference ranges are not reported, since discordance with absolute values may lead to misinterpretation of CBC data. Current Interpretive Data was last revised on 2017. Testing performed by: [address] [address] Eosinophil pct 1.6 % [facility] Comment: Interpretive Data Percent cell count reference ranges are not reported, since discordance with absolute values may lead to misinterpretation of CBC data. Current Interpretive Data was last revised on 2017. Testing performed by: [address] [address] Basophil pct 0.5 % [facility] Comment: Interpretive Data Percent cell count reference ranges are not reported, since discordance with absolute values may lead to misinterpretation of CBC data. Current Interpretive Data was last revised on 2017. Testing performed by: [address] [address] Blood 08/27/2024 2:36 PM CDT 08/27/2024 2:39 PM CDT us Arielle Villegas NP LAB BLOOD ORDERABLES Ngoc hurtado Result LYNN FUENTES [address] [facility] Department [place] [address] * CBC with auto differential (08/27/2024 2:36 PM CDT) WBC 8.64 3.80 - 9.90 K/cumm Comment:Testing performed by : [address] [address] Hgb 13.2 11.9 - 15.5 g/dL LYNN Comment:Testing performed by : [address] [address] Hct 40.3 35.6 - 45.5 % LYNN Comment:Testing performed by : [address] [address] Plt 265 150 - 400 K/cumm LYNN Comment:Testing performed by : [address] [address] MPV 10.3 9.1 - 12.3 fL LYNN Comment:Testing performed by : [address] [address] RBC 4.76 3.90 - 5.20 M/cumm LYNN Comment:Testing performed by : [address] [address] MCV 84.7 81.3 - 96.4 fL LYNN Comment:Testing performed by : [address] [address] MCH 27.7 27.1 - 33.3 pg LYNN Comment:Testing performed by : [address] [address] MCHC 32.8 32.3 - 35.7 g/dL LYNN Comment:Testing performed by : [address] [address] RDW CV 13.9 11.1 - 14.9 % LYNN Comment:Testing performed by : [address] [address] RDW SD 43.1 35.7 - 48.1 fL LYNN Comment:Testing performed by : [address] [address] NRBC abs 0.00 0.00 - 0.01 K/cumm LYNN Comment:Testing performed by : [address] [address] Blood 08/27/2024 2:36 PM CDT 08/27/2024 2:39 PM CDT us Arielle Villegas NP LAB BLOOD ORDERABLES Ngoc hurtado Result LYNN [address] [facility] Department [place] [address] * (ABNORMAL) Comprehensive metabolic panel (08/27/2024 2:36 PM CDT) Sodium 139 135 - 145 mmol/L Comment:Testing performed by : [address] [address] Potassium, pl 3.7 3.3 - 4.9 mmol/L LYNN Comment:Testing performed by : [address] [address] Chloride 103 97 - 110 mmol/L LYNN Comment:Testing performed by : [address] [address] CO2 25 22 - 32 mmol/L LYNN Comment:Testing performed by : [address] [address] Anion gap 11 2 - 15 mmol/L LYNN Comment:Testing performed by : [address] [address] BUN 13 6 - 25 mg/dL LYNN Comment:Testing performed by : [address] [address] Creatinine 1.00 0.60 - 1.10 mg/dL LYNN Comment:Testing performed by : [address] [address] Glucose 95 70 - 199 mg/dL LYNN Comment: Interpretive Data Fasting glucose >/= 126 mg/dl is diagnostic for diabetes. Fasting is defined as no caloric intake for at least 8 hours. Fasting glucose between 100 mg/dl to 125 mg/dl is diagnostic of prediabetes. In a patient with classic symptoms of hyperglycemia or hyperglycemic crisis, a random glucose >/= 200 mg/dl is diagnostic for diabetes. In the absence of unequivocal hyperglycemia, results should be confirmed by repeat testing. The classification and Diagnosis of Diabetes Diabetes Care 202; 46: S19-S40. Current interpretive data was last revised 2022. Testing performed by: [facility], [address] [place] [address]., [address] Calcium 9.0 8.5 - 10.3 mg/dL LYNN Comment:Testing performed by : [facility], [address] [place] [address]., [address] Bilirubin, total 0.2 0.1 - 1.2 mg/dL LYNN Comment:Testing performed by : [address] [address] Protein, pl 7.1 6.5 - 8.5 g/dL LYNN Comment:Testing performed by : [address] [address] Albumin 4.2 3.5 - 5.0 g/dL LYNN Comment:Testing performed by : [address] [address] Alk phos 152(H) 40 - 130 Units/L LYNN Comment:Testing performed by : [address] [address] ALT 13 7 - 45 Units/L LYNN Comment:Testing performed by : [address] [address] AST 15 10 - 45 Units/L LYNN Comment:Testing performed by : [address] [address] Blood 08/27/2024 2:36 PM CDT 08/27/2024 2:39 PM CDT us Arielle Villegas NP LAB BLOOD ORDERABLES Ngoc l Result [facility] [address] [facility] Department [place] [address] from Last 3 Months Insurance [facility] Care Teams School Lunch Manager Relationship Specialty Start Date End Date Carroll La MD [address] [address] PCP - General Family Medicine 08/27/24
--- OUTSIDE RECORDS SUMMARY | 2024-11-15 18:30 | XMS_ITS | Encounter Summary ---
Author Organization [facility] Address [facility] [place] [address] Care Team Providers Care Reimbursement Rep Name Role Phone Melissa Doss DO Primary Care Provider [phone] Devaughn Manuel MD Primary Care Provider [phone] Selam, Melissa DO Primary Care Provider [phone] Selam Melissa DO Primary Care Provider [phone] None, Provider Primary Care Provider Carroll Yang MD Primary Care Provider [phone] Encounter Details Date Type Department Care Team (Late st Contact Info) Description 07/16/2020 [employer] Message Enc [facility] Medical [facility] Family Medicine - [place] [address] [facility], [address] [place] [id number] Ben, [facility] Provider lab results Social History Tobacco Use Types Packs/Day Years [...] Sex Assigned at Female 03/21/2024 5:01 PM APPRENTICESHIP REPRESENTATIVE Legal Sex Female 10:42 PM CDT [...] Assessment Author Status No 01/01/2020 2:43 PM APPRENTICESHIP REPRESENTATIVE Activ e * RETIRED Are you blind or do you have serious difficulty seeing, even when wearing glasses? Answer Date of Assessment Author Status No 01/01/2020 2:43 PM APPRENTICESHIP REPRESENTATIVE Activ e * Do you have [...] Last Indicated Resolved Time COVID-19 Rule Out 09/09/2020 09/09/2020 09/09/2020 3:01 PM CDT COVID-19 Rule Out 02/18/2021 02/18/2021 02/19/2021 1:01 PM APPRENTICESHIP REPRESENTATIVE COVID-19 Confirmed 02/18/2021 02/18/2021 12:32 AM APPRENTICESHIP REPRESENTATIVE COVID-19 Rule Out 11/15/2021 11/15/2021 11/16/2021 11:55 PM CDT Assessment Noted Time PHQ-9 Depression Total Score: 1 06/25/19 11:11 AM CDT documented as of this encounter Care Teams Reimbursement Rep Relationship Specialty Start Date End Date Melissa Doss DO [address] [place] [address] PCP - General FAMILY PRACTICE 04/22/20 01/15/21 Devaughn Manuel MD [address] [place] [address] PCP - General INTERNAL MEDICINE 01/16/21 11/09/21 Melissa Doss DO [facility] [place] [address] PCP - General FAMILY PRACTICE 11/10/21 07/15/22 Melissa Doss DO [address] [place] [address] PCP - General FAMILY PRACTICE 01/16/23 01/19/23 None, Provider, PCP - General UNKNOWN PHYSICIAN SPECIALTY 02/19/23 12/13/23 Carroll La MD [address] [place] [address] [address] [place] [address] PCP - General FAMILY PRACTICE 12/14/23 documented as of this encounter
--- OUTSIDE RECORDS SUMMARY | 2024-11-15 18:30 | XMS_ITS | Encounter Summary ---
Author Organization [facility] Address [address] [facility] [place] [address] Care Team Providers Care Pest Control Service Sales Agent Name Role Phone Sudhakar Sloan APRN-RUBBER TESTER Primary Care Provider Bethany vailable Clemencia Collado MD Unavailable Melissa Doss DO Unavailable [phone] Devaughn Manuel MD Primary Care Provider + Melissa Doss DO Primary Care Provider [phone] Carroll La MD Primary Care Provider [phone] Reason for Visit * Reason Onset Date Comments MEDICATION REFILL 06/29/2020 Encounter Details Date Type Department Care Team (Late st Contact Info) Description 06/29/2020 Refill [facility] General Internal Medicine [address] [facility] [place] [address] Sudhakar Sloan, DARLINE-RUBBER TESTER No information available MEDICATION REFILL Social History [...] st Contact Info) Description 12/30/2024 10:20 AM PHYSICIAN OFFICE ASSISTANT Office Visit [facility] [address] [facility] [address] [place] [address] Yosi Jimenez MD [address] [facility] [address] [place] [id number] documented as of this encounter Visit Diagnoses Not on filedocumented in this encounter Care Teams Pest Control Service Sales Agent Relationship Specialty Start Date End Date Sudhakar Sloan APRN-CNP PCP - General 05/28/20 02/25/21 Melissa Doss DO [address] [place] [address] PCP - Attributed-[employer] [place] 03/23/20 08/11/20 Devaughn Manuel MD [address] [place] [address] PCP - General Internal Medicine 02/26/21 11/10/21 Melissa Doss DO [address] [place] [address] PCP - General 11/11/21 04/29/24 Carroll La MD [address] [facility] [address] [address] PCP - General Family Medicine 04/30/24 Clemencia Collado MD [address] [facility] [place] [place], [place] Resident Student Resident 06/10/20 documented as of this encounter
[2024-11-15 18:40] LABS: Hematocrit 41.2 % (37.0-47.0); Hemoglobin 13.1 g/dL (12.0-15.0); Immature Granulocyte Percent A 0.3 % (0-0.5); Lymphocytes Absolute Auto 1.57 K/mm3 (0.9-3.2); Mean Corpuscular HGB Conc 31.8 g/dl (32-36); Mean Corpuscular Hemoglobin 27.7 pg (26-34); Mean Corpuscular Volume 87.1 fl (80-100); Nucleated Red Blood Cells Absolute Auto 0.000 K/mm3 (0.0-0.012); Nucleated Red Blood Cells Perc 0.0 % (0.0-0.2); Platelet Count Result 295 k/mm3 (150-375); Red Blood Count 4.73 M/mm3 (4.2-5.4); White Blood Count 10.1 K/mm3 (4.5-10.0)
[2024-11-15 18:51] LABS: Alanine Aminotransferase 19 U/L (6-35); Albumin Level 4.1 g/dL (3.5-5.1); Alkaline Phosphatase 135 U/L (38-126); Anion Gap 9 mmol/L (4-12); Aspartate Amino Transferase 21 U/L (14-36); Bilirubin,Total 0.4 mg/dL (0.2-1.3); Blood Urea Nitrogen 20 mg/dL (7-17); Calcium 8.9 mg/dL (8.4-10.2); Carbon Dioxide 25 mmol/L (22-30); Chloride 105 mmol/L (98-107); Estimated CRCL calculation 73 ml/min; Estimated Glomerular Filt Rate > 60; Glucose 107 mg/dL (65-110); Potassium 4.3 mmol/L (3.4-5.0); Sodium 139 mmol/L (137-145); Total Protein 7.4 g/dL (6.3-8.2)
[2024-11-15 19:03] LABS: Add Urine Microscopic? YES; Appearance Urine Cloudy (Clear); Glucose Urine UA Negative (Negative); Leukocyte Esterase Ur Trace LEU/UL (Negative); Nitrate Urine Negative (Negative); Non Pathogenic Casts 0-2; Specific Grav Ur 1.024 (1.001-1.035)
[2024-11-15 19:10] LABS: Creatine Kinase 42 U/L (30-135); Magnesium 2.2 mg/dL (1.6-2.3)
[2024-11-15 19:21] LABS: Troponin I < 0.012 ng/mL (0.000-0.034)
[2024-11-15] MEDS: ONDANSETRON INJ 4 MG/2 ML VIAL IV PUSH (19:30)
[2024-11-15] MEDS: SODIUM CHLORIDE 0.9% IV 1,000 ML 999 ML IV CONT (19:31)
--- NOTE | 2024-11-15 19:37 | PC.NURSE ---
Report received from JAIME Jordan. Assumed care of patient at this time.
[2024-11-15 21:13] VITALS: BP 128/80; PULSE 87; RESP 17; O2SAT 97
== END 2024-11-15 21:21 | disposition home or self-care (01) ==
PROVIDERS: Physician Assistant; Emergency Provider Physician Assistant
DX: R53.1 Weakness (principal); R29.6 Repeated falls; J32.9 Chronic sinusitis, unspecified; I65.22 Occlusion and stenosis of left carotid artery
CPT/HCPCS: 36415; 70450; 70496; 70498; 71046; 80053; 81001; 82550; 83735; 84484; 85025; 93005; 96361; 96374; 99284; J2405; J7030; Q9967